=== PATIENT | female | born 1945 | race Caucasian/White ===

== ENCOUNTER 2018-09-21 22:44 | Inpatient (IN) | payer MEDICARE, BC ==
[~2018-09-21] VITALS: Ht 160 cm; Wt 72.4 kg
--- NOTE | ~2018-09-21 | HEMODYNAMI ---
PATIENT:CK HENDRICKS MEDICAL RECORD: [id number] : 45 LOCATION:[facility] D.2114 ADMISSION DATE: 09/21/18 Generatedon:09/25/201810:01 Patient name: CK HENDRICKS Patient #: [id number] SSN: : 1945 Date of study: 09/25/2018 Page: Of Hemodynamic Procedure Report Patient Data Patient Demographics Procedure consent was obtained First Name: CK Gender: Female Last Name: ELADIO : 1945 Patient #: [id number] Age: 73 year(s) Race: Unknown Additional ID: [id number] Contact details Address: [address] [place] [address] State: [place] City: [place] Zip code: [address] Admission Admission Data Admission Date: 09/21/2018 Admission Time: 23:38 Room #: D.2114 Weight (lbs.): 154.32 Weight (kg.): 70 Lab Results Lab Result Date: 09/25/2018 Lab Result Time: 0:00 Biochemistry Name Units Result Min Max BUN mg/dl 5 -*(----)-- 7 18 Creatinine mg/dl 0.7 --(*---)-- 0.6 1.3 CBC Name Units Result Min Max Hemoglobin g/dl 9.6 *-(----)-- 13.5 17.5 Procedure Procedure Types Cath Procedure Diagnostic Procedure [facility] w/Coronaries PCI Procedure Coronary Stent Coronary Stent Initial Procedure Description Procedure Date Procedure Date: 09/25/2018 Procedure Start Time: 9:48 Procedure End Time: 9:58 Procedure Staff Name Function Elliot Varma MD Performing Physician Juanjose Peacock RT Monitor Debbie Iglesias RN Nurse Eun Perez RT Scrub Procedure Data Cath Procedure Fluoroscopy Diagnostic fluoroscopy Total fluoroscopy Time: 2.4 time: 2.4 min min Diagnostic fluoroscopy Total fluoroscopy dose: 161 dose: 161 mGy mGy Contrast Material Contrast Material Type Amount (ml) Isovue 300 60 Entry Location Entry Primary Successful Side Size Upsize Upsize Entry Closure Pacheco ccessful Closure Location (Fr) 1 (Fr) 2 (Fr) Remarks Device Remarks Radial Right 6 Fr Mechanical artery Short Compression Estimated blood loss: 10 ml Diagnostic catheters Device Type Used For End Catheter Placement DIAGNOSTIC [place] 110cm 5 Procedure Fr catheter ([id number]) Procedure Complications No complications Procedure Medications Medication Administration Route Dosage Oxygen etCO2 Nasal cannula 2 l/min Lidocaine 2% added to field 20 Heparin Flush Bag added to field 2 bags (1000units/500ml NS) 0.9% NaCl I.V. 100 ml/hr Versed I.V. 1 mg Fentanyl I.V. 50 mcg Radial Cocktail I.A. 1 syringe (Verapomil 2mg/Nitro 400mcg/Heparin 1500units) Heparin Bolus I.V. 4000 units Integrilin (Bolus I.V. 6.2 ml 2mg/ml) Plavix P.O. 600 mg Hemodynamics Rest HGB: 9.6 (g/dl) Heart Rate: 69 (bpm) Pressure Samples Time Site Value (mmHg) Purpose Heart Use Rate(bpm) 9:50 AO 154/86(112) Snapshot 74 9:50 AO 161/88(118) Snapshot 75 Snapshots Pre Cath Intra NCS Post Cath Vital Signs Time Heart Resp SPO2 etCO2 NIBP (mmHg) Rhythm Pain Sedation Rate (ipm) (%) (mmHg) Status Level (bpm) 9:32:39 70 10 94 0 189/114(157) NSR 0 (11) 10(A) , No pain 9:37:08 68 24 94 0 177/101(160) NSR 0 (11) 10(A) , No pain 9:41:30 67 23 96 0 186/115(160) NSR 0 (11) 10(A) , No pain 9:45:56 69 17 92 0 180/106(155) NSR 0 (11) 10(A) , No pain 9:50:02 78 17 94 0 120/96(112) NSR 0 (11) 10(A) , No pain 9:54:59 79 23 95 0 166/94(137) NSR 0 (11) 10(A) , No pain Medications Time Medication Route Dose Verified Delivered Reason Not es Effectiveness by by 9:44:38 Oxygen etCO2 2 l/min Elliot Lewis used for Nasal Tauth MD Iglesias senior examiner cannula 9:44:43 Lidocaine 2% added 20ml Elliot Zarate for local to vial Avani Varma MD anesthetic field 9:44:48 Heparin Flush added 2 bags Elliot Zarate used for Bag to Avani Varma MD procedure (1000units/500ml field NS) 9:44:56 0.9% NaCl I.V. 100ml/hr Elliot Lewis Per physician Avani Iglesias RN 9:46:12 Versed I.V. 1 mg Elliot Lewis for sedation Avani Iglesias RN 9:46:19 Fentanyl I.V. 50 mcg Elliot Lewis for sedation Avani Iglesias RN 9:49:39 Radial Cocktail I.A. 1 Elliot Zarate for (Verapomil syringe Avani Varma MD vasodilation 2mg/Nitro 400mcg/Heparin 1500units) 9:50:21 Heparin Bolus I.V. 4000 Elliot Lewis for delfino ified units Avani Iglesias RN anticoagulation with dr varma 9:53:54 Integrilin I.V. 6.2 ml Elliot berry Was marlen (Bolus 2mg/ml) Avani Iglesias RN antiplatelet 3.8 ml therapy of vial 9:58:00 Plavix P.O. 600 mg Elliot Lewis for Avani Iglesias RN antiplatelet therapy Procedure Log Time Note 8:52:08 Time tracking: Regular hours (M-F 7:00 - 5:00) 8:52:12 Plan of Care:Hemodynamics will remain stable., Cardiac rhythm will remain stable., Comfort level will be maintained., Respiratory function will remain adequate., Patient/ family verbilizes understanding of procedure., Procedure tolerated without complication., Recovers from procedure without complications.. 9:05:03 Debbie Iglesias RN sent for patient. Start room use. 9:20:57 Patient received from PCU to CCL 3 Alert and oriented. Tansferred to table in Supine position. 9:20:58 Warm blankets applied, and moriah hugger turned on for patient comfort. 9:20:58 Correct patient and procedure confirmed by team. 9:20:59 Signed procedure consent form obtained from patient. 9:21:00 ECG and BP/O2 sat monitors applied to patient. 9:21:01 Full Disclosure recording started 9:31:32 Vital chart was started 9:37:38 Baseline sample Acquired. 9:37:41 Rhythm: sinus rhythm 9:37:59 H&P Date Dictated: 09/22/2018 Within 30 days and on chart., H&P Addendum completed by physician on day of procedure. (MUST COMPLETE FOR ALL OUTPATIENTS). 9:38:00 Pre-procedure instructions explained to patient. 9:38:01 Pre-op teaching completed and patient verbalized understanding. 9:38:04 Family in patients room. 9:38:06 Patient NPO since Midnight. 9:38:07 Is the patient allergic to Iodine/contrast media? No. 9:38:09 Is patient on blood thinner?No 9:38:11 Patient diabetic? No. 9:38:13 Previous problem with sedation/anesthesia? No ? 9:38:13 Snore? Yes 9:38:14 Sleep apnea? No 9:38:16 Deviated septum? No 9:38:16 Opens mouth fully? Yes 9:38:17 Sticks out tongue? Yes 9:38:19 Airway obstruction? No ? 9:38:22 Dentures? Yes IN 9:38:26 Pre procedure: right dorsailis pedis pulse 1+ Palpable, but thready & weak; easily obliterated 9:38:28 Modified Rasheed's test Ulnar < 7 seconds 9:38:31 Patient pain scale 0/10 ?. 9:38:39 IV left forearm D/C'd due to infiltration. 9:38:41 Lab results completed and on chart. 9:38:46 Right Radial & Right Groin area was prepped with chlora-prep and draped in sterile fashion 9:38:48 Alarms reviewed by R. N. 9:38:48 Sharps counted by scrub and verified by R.N. 9:38:54 Use device set Radial Dx or PCI 9:38:56 Tegaderm 4 x 4 (1626W) opened to sterile field. 9:38:56 ACIST Manifold (13040) opened to sterile field. 9:38:57 ACIST Hand Control (76430) opened to sterile field. 9:38:58 ACIST Syringe (71517) opened to sterile field. 9:38:58 Medline Cath Pack ([id number]) opened to sterile field. 9:38:59 Bag Decanter (2002S) opened to sterile field. 9:38:59 DIAGNOSTIC WIRE .035 260cm J wire (705154) opened to sterile field. 9:39:00 MBrace Wrist Support ([id number]) opened to sterile field. 9:39:02 SHEATH 6FR Slender (90-5574) opened to sterile field. 9:42:43 IV started by Debbie Iglesias RN inleft hand with a 22 gauge IV catheter with 0.9% NaCl at KVO. 9:42:53 IV CATHETER 22g opened to sterile field. 9:44:38 Oxygen 2 l/min etCO2 Nasal cannula was administered by Debbie Iglesias RN; used for procedure; 9:44:43 Lidocaine 2% 20ml vial added to field was administered by Elliot Varma MD; for local anesthetic; 9:44:48 Heparin Flush Bag (1000units/500ml NS) 2 bags added to field was administered by Elliot Varma MD; used for procedure; 9:44:56 0.9% NaCl 100ml/hr I.V. was administered by Debbie Iglesias RN; Per physician; 9:45:32 --------ALL STOP TIME OUT------ 9:45:33 Final Timeout: patient, procedure, and site verified with staff and physician. All members of the team are in agreement. 9:45:35 Right Radial & Right Groin site verified by team. 9:45:42 Maximum allowable Isovue 300 dose 300ml. Physician notified. (300ml for normal creatinines. For patients with creatinine of 1.7 or higher multiply weight(kg) x 5 divided by creatinine.) 9:45:47 Fire Safety Assessment: A--An alcohol-based skin anteseptic being used preoperatively., C--Open oxygen or nitrous oxide is being used., D--An ESU, laser, or fiber-optic light is being used. 9:45:50 Physical assessment completed. ASA score P 2 - A patient with mild systemic disease as per Elliot Varma MD. 9:45:53 Sedation plan: IV Moderate Sedation Medication:Versed, Fentanyl 9:46:12 Versed 1 mg I.V. was administered by Debbie Iglesias RN; for sedation; 9:46:19 Fentanyl 50 mcg I.V. was administered by Debbie Iglesias RN; for sedation; 9:47:15 Lab Result : Creatinine 0.7 mg/dl 9:47:15 Lab Result : BUN 5 mg/dl 9:47:15 Lab Result : Hemoglobin 9.6 g/dl 9:47:19 Patient Weight : 154.32 lbs 9:48:07 Procedure started. 9:48:15 Local anesthetic to right radial artery with Lidocaine 2% by Elliot Varma MD.INITIAL ACCESS ONLY 9:48:45 A 6 Fr Short sheath was inserted into the Right Radial artery 9:49:16 A DIAGNOSTIC [place] 110cm 5 Fr catheter ([id number]) was advanced over the wire and used for Procedure. 9:49:39 Radial Cocktail (Verapomil 2mg/Nitro 400mcg/Heparin 1500units) 1 syringe I.A. was administered by Elliot Vamra MD; for vasodilation; 9:49:48 LV angiography performed. 9:49:49 LV gram done using PARIKH 9:49:53 EF : 50 % 9:49:57 Injector settings: Ml/sec: 5, Volume: 15, 9:50:21 Heparin Bolus 4000 units I.V. was administered by Debbie Iglesias RN; for anticoagulation; verified with dr varma 9:50:44 LCA angiography performed. 9:51:06 RCA angiography performed. 9:51:14 Catheter exchanged over wire. 9:51:18 Use device set [facility] PCI 9:51:25 CHOICE PT Extra Support 182cm wire ([id number]) opened to sterile field. 9:51:27 INFLATOR Merit BasixCompak (ZJ1664) opened to sterile field. 9:51:29 GUIDE 6FR XBLAD 3.5 catheter (85047240) opened to sterile field. 9:52:23 6 Fr XBLAD 3.5 guide catheter was inserted over the wire 9:52:31 CPTXS wire advanced. 9:53:19 Wire advanced across lesion. 9:53:54 Integrilin (Bolus 2mg/ml) 6.2 ml I.V. was administered by Debbie Iglesias RN; for antiplatelet therapy; Wasted 3.8 ml of vial 9:54:54 Place stent Inflation Number: 1 A INTEGRITY RX 3.5 x 12 stent ([id number]) was prepped and advanced across the Mid LAD. The stent was deployed at 15 NGUYEN for 0:10 (min:sec). 9:55:05 Stent catheter was removed intact over wire. 9:55:06 Wire removed. 9:55:07 Guide catheter removed. 9:55:10 TR BAND Standard ([id number]) opened to sterile field. 9:56:48 Sheath removed intact; hemostasis achieved with Mechanical Compression to the Right Radial artery. 9:56:50 Procedure ended.(Physican Out) 9:57:06 Fluoroscopy time 02.40 minutes. 9:57:13 Fluoroscopy dose: 161 mGy 9:57:13 Flurop Dose total: 161 9:57:29 Contrast amount:Isovue 300 60ml. 9:57:31 Sharps counted by scrub and verified by R.N. 9:57:33 TR band inflated with 12cc of air. 9:57:34 Insertion/operative site no bleeding no hematoma. 9:57:35 Post Procedure Pulses reassessed and unchanged 9:57:37 Post-procedure physical assessment completed. ASA score P 2 - A patient with mild systemic disease as per Elliot Varma MD. 9:57:39 Post procedure rhythm: unchanged. 9:57:42 Estimated blood loss: 10 ml 9:57:43 Post procedure instruction explained to patient.Patient verbalizes understanding. 9:57:44 Patient needs reinforcement of post procedure teaching. 9:57:50 Procedure type changed to Cath procedure, Diagnostic procedure, LHC, LHC w/Coronaries, PCI procedure, Coronary Stent, Coronary Stent Initial 9:58:00 Plavix 600 mg P.O. was administered by Debbie Iglesias RN; for antiplatelet therapy; 9:58:10 Procedure and supply charges have been captured, reviewed, submitted and are correct. 9:58:13 Procedure Complication : No complications 9:58:17 Vital chart was stopped 9:58:18 See physician's report for complete and final results. 9:58:44 Report given to PCU. 9:58:47 Patient transfered to PCU with Bed. 9:58:49 Procedure ended. 9:58:49 Full Disclosure recording stopped 9:58:54 End room use (Document Last) Intervention Summary Intervention Notes Time ActionType Lesion and Equipment Action# Pressure Duration Attributes Used 9:54:54 Place stent Mid LAD INTEGRITY RX 1 15 00:10 3.5 x 12 stent ([id number]) Device Usage Item Name Manufacture Quantity Catalog Number Hospital Part Current Mini mal Lot# / Charge Number Stock Stock Serial# Code Tegaderm 4 x 3M 1 1626W [id number] 244153 427516 5 4 (1626W) ACIST Acist 1 15328 828450 715705 413799 5 Manifold Medical (41972) Systems Inc ACIST Hand Acist 1 38886 328568 142791 428914 5 Control Medical (27882) Systems Inc ACIST Acist 1 84836 089344 610286 659454 20 Syringe Medical (19111) Systems Inc Medline Cath Medline 1 [id number] 067415 96982 675738 5 Pack ([id number]) Bag Decanter Microtek 1 2001S 226854 13682 133404 5 (2001S) Medical Inc. DIAGNOSTIC St Portillo 1 392165 947881 662903 200559 30 WIRE .035 260cm J wire (797917) MBrace Wrist Advanced 1 140-0250-00 445799 52256 356067 5 Support Vascular (111856506) Dynamics SHEATH 6FR Terumo 1 [id number] 394530 322658 236369 5 Slender (80-1060) IV CATHETER B. Sanders 1 9641544-45 444662 334323 909140 5 22g DIAGNOSTIC Terumo 1 40-5900 444267 686885 497243 5 [place] 110cm 5 Fr catheter (002450) CHOICE PT Spring 1 [id number] 896846 661882 557644 5 Extra Scientific Support 182cm wire (4276917F5) INFLATOR Merit 1 JT3439 949039 358544 146048 15 [facility] Medical BasixCompak (QF0898) GUIDE 6FR Cardinal 1 39967957 842883 445542 959345 10 XBLAD 3.5 Health catheter (21987313) INTEGRITY RX Medtronic 1 [id number] 545970 628460 923585 5 [id number] 3.5 x 12 stent ([id number]) TR BAND Terumo 1 HNH49-YGE 619286 676080 725473 40 Standard ([id number]) Signature Audit [place] Stage Time Signature Unsigned Intra-Procedure 09/25/2018 Juanjose Peacock 10:01:22 AM RT(R) Signatures Monitor : Juanjose Peacock RT Signature : Date : Time : [address] [place] [address]
[2018-09-21] MEDS ORDERED: LISINOPRIL20 MG PO (22:50)
[2018-09-21] MEDS ORDERED: HYDROCODON-ACE1 EAC7 PO (22:51)
[2018-09-21] MEDS ORDERED: PROTONIX40 MG PO (22:51)
[2018-09-21] MEDS ORDERED: TRAZODONE HCL150 MG PO (22:52)
[2018-09-21] MEDS ORDERED: CATAPRES0.1 MG PO (22:52)
[2018-09-21] MEDS ORDERED: BACLOFEN20 M1 PO (22:53)
[2018-09-21] MEDS ORDERED: SYNTHROID50 MCG PO (22:53)
[2018-09-21] MEDS ORDERED: FERROUS SULFAT325 MG PO (22:53)
[2018-09-21 23:27] LABS: BASOPHILS 0.4 % (0-2); EOSINOPHILS 0.2 % (0-7); HEMATOCRIT 20.9 % (36.0-48.0); IMMATURE GRANULOCYTES 0.2 % (0-5); LYMPHOCYTES 16.6 % (15-50); MCHC 25.4 g/dL (31.0-37.0); MCV 58.4 fL (80.0-100.0); MONOCYTES 9.2 % (2-11); NEUTROPHILS 73.4 % (40-80); PLATELET COUNT 370 10x3/uL (130-400); RBC 3.58 10x6/uL (4.00-5.40); RDW 20.4 % (11.5-14.5); WBC 4.9 10x3/uL (4.8-10.8)
[2018-09-21 23:28] LABS: HEMOGLOBIN 5.3 g/dL (12-16); MCH 14.8 pg (26.0-34.0)
[2018-09-21 23:30] VITALS: BP 151/79
[2018-09-21 23:39] LABS: ALBUMIN 2.8 g/dL (3.4-5.0); ALKALINE PHOSPHATASE 54 U/L (46-116); ALT (SGPT) 11 U/L (10-68); APTT 34.8 SECONDS (22.8-39.4); BILIRUBIN - TOTAL 0.46 mg/dL (0.2-1.3); CALC OSMOLALITY 266 mosm/kg (275-300); CALCIUM 8.2 mg/dL (8.5-10.1); CHLORIDE - SERUM 99 mmol/L (98-107); CREATININE - SERUM 0.6 mg/dL (0.6-1.3); GLUCOSE 82 mg/dL (74-106); INR 1.17 (0.85-1.17); POTASSIUM - SERUM 3.3 mmol/L (3.5-5.1); PROTEIN - SERUM 7.5 g/dL (6.4-8.2); PROTIME 14.4 SECONDS (11.6-15.0); SODIUM 135 mmol/L (136-145); UREA NITROGEN 8 mg/dL (7-18); eGFR NON AFRICAN AMERICAN > 90 mL/min (90-120)
[2018-09-21 23:56] LABS: CKMB 0.1 U/L (0.0-3.6); CREATINE KINASE 69 UL (21-215); MAGNESIUM - SERUM 1.9 mg/dL (1.8-2.4)
[2018-09-22] VITALS (26 sets, daily range): BP systolic 122–185; BP diastolic 56–92; BMI 27.5
[2018-09-22] LABS: TROPONIN-I 14.024 ng/mL (0.000-0.060)
[2018-09-22 06:55] LABS: ALBUMIN 2.8 g/dL (3.4-5.0); ALKALINE PHOSPHATASE 58 U/L (46-116); ALT (SGPT) 9 U/L (10-68); CALC OSMOLALITY 268 mosm/kg (275-300); CALCIUM 8.1 mg/dL (8.5-10.1); CARBON DIOXIDE 23.8 mmol/L (21.0-32.0); CHLORIDE - SERUM 100 mmol/L (98-107); CREATINE KINASE 143 UL (21-215); CREATININE - SERUM 0.6 mg/dL (0.6-1.3); GLUCOSE 82 mg/dL (74-106); POTASSIUM - SERUM 3.1 mmol/L (3.5-5.1); PROTEIN - SERUM 7.4 g/dL (6.4-8.2); SODIUM 136 mmol/L (136-145); UREA NITROGEN 8 mg/dL (7-18); eGFR NON AFRICAN AMERICAN > 90 mL/min (90-120)
[2018-09-22 06:56] LABS: TROPONIN-I 13.203 ng/mL (0.000-0.060)
[2018-09-22 07:14] LABS: BASOPHILS 0.1 % (0-2); EOSINOPHILS 0.1 % (0-7); IMMATURE GRANULOCYTES 0.5 % (0-5); LYMPHOCYTES 2.8 % (15-50); MCHC 28.5 g/dL (31.0-37.0); MEAN PLATELET VOLUME 9.3 fL (7.4-10.4); NEUTROPHILS 93.5 % (40-80); RBC 4.25 10x6/uL (4.00-5.40); RDW 26.5 % (11.5-14.5); WBC 8.1 10x3/uL (4.8-10.8)
[2018-09-22 07:15] LABS: HEMATOCRIT 27.4 % (36.0-48.0); HEMOGLOBIN 7.8 g/dL (12-16); MCH 18.4 pg (26.0-34.0); MCV 64.5 fL (80.0-100.0); PLATELET COUNT 216 10x3/uL (130-400)
[2018-09-22 08:12] LABS: % SATURATION 71 % (15-55); IRON 266 ug/dl (35-150); TOTAL IRON BIND CAPACITY 373 ug/dl (260-445); UNSAT IRON BIND CAPACITY 107 ug/dl (150-375)
[2018-09-22 08:26] LABS: FERRITIN 41 ng/mL (3-244); LDH 331 U/L (81-234)
[2018-09-22 12:49] LABS: CKMB 0.9 U/L (0.0-3.6); CREATINE KINASE 162 UL (21-215)
[2018-09-23] VITALS (22 sets, daily range): BP systolic 94–181; BP diastolic 55–99; Ht 160 cm; Wt 72.4 kg
[2018-09-23 04:28] LABS: BASOPHILS 0.4 % (0-2); EOSINOPHILS 1.1 % (0-7); HEMATOCRIT 30.9 % (36.0-48.0); HEMOGLOBIN 9.2 g/dL (12-16); IMMATURE GRANULOCYTES 0.2 % (0-5); MCH 20.1 pg (26.0-34.0); MCHC 29.8 g/dL (31.0-37.0); MONOCYTES 10.4 % (2-11); NEUTROPHILS 69.9 % (40-80); PLATELET COUNT 230 10x3/uL (130-400); RBC 4.57 10x6/uL (4.00-5.40); RDW 26.7 % (11.5-14.5)
[2018-09-23 04:36] LABS: MCV 67.6 fL (80.0-100.0); WBC 5.7 10x3/uL (4.8-10.8)
[2018-09-23 04:40] LABS: CALC OSMOLALITY 264 mosm/kg (275-300); CALCIUM 8.3 mg/dL (8.5-10.1); CARBON DIOXIDE 28.2 mmol/L (21.0-32.0); CHLORIDE - SERUM 99 mmol/L (98-107); CREATININE - SERUM 0.7 mg/dL (0.6-1.3); GLUCOSE 87 mg/dL (74-106); POTASSIUM - SERUM 3.2 mmol/L (3.5-5.1); SODIUM 134 mmol/L (136-145); UREA NITROGEN 6 mg/dL (7-18); eGFR NON AFRICAN AMERICAN 87 mL/min (90-120)
[2018-09-24] VITALS (13 sets, daily range): BP systolic 106–174; BP diastolic 46–88
[2018-09-24 04:27] LABS: BASOPHILS 0.2 % (0-2); EOSINOPHILS 1.1 % (0-7); HEMATOCRIT 32.3 % (36.0-48.0); HEMOGLOBIN 9.5 g/dL (12-16); IMMATURE GRANULOCYTES 0.2 % (0-5); LYMPHOCYTES 15.8 % (15-50); MCHC 29.4 g/dL (31.0-37.0); MONOCYTES 11.3 % (2-11); NEUTROPHILS 71.4 % (40-80); PLATELET COUNT 238 10x3/uL (130-400); RBC 4.75 10x6/uL (4.00-5.40); RDW 27.6 % (11.5-14.5); WBC 4.5 10x3/uL (4.8-10.8)
[2018-09-24 04:49] LABS: CALC OSMOLALITY 262 mosm/kg (275-300); CALCIUM 8.3 mg/dL (8.5-10.1); CARBON DIOXIDE 27.8 mmol/L (21.0-32.0); CHLORIDE - SERUM 98 mmol/L (98-107); CREATININE - SERUM 0.7 mg/dL (0.6-1.3); GLUCOSE 99 mg/dL (74-106); SODIUM 133 mmol/L (136-145); UREA NITROGEN 5 mg/dL (7-18); eGFR NON AFRICAN AMERICAN 87 mL/min (90-120)
[2018-09-24 04:59] LABS: POTASSIUM - SERUM 3.9 mmol/L (3.5-5.1)
[2018-09-24 09:18] LABS: FOLATE (FOLIC ACID) - SERUM 11.8 ng/mL (>3.0)
--- NOTE | 2018-09-24 18:41 | MORECARE ---
CASE MANAGEMENT DISCHARGE SUMMARY PATIENT: CK HENDRICKS UNIT: [id number] ADM DATE: 09/21/18 AGE: 73 : 45 SEX: F ROOM/BED: D.2114 AUTHOR: MARIANA JUÁREZ PHYSICIAN: REFERRING PHYSICIAN: JARED STOVER MD DATE OF SERVICE: 09/24/18 Discharge Plan Patient Name: CK HENDRICKS Facility: [facility]:[place] : 1945 Planned Disposition: Home with Home Health Anticipated Discharge Date: Discharge Date: Expected LOS: Initial Reviewer: [email or web address] Initial Review Date: 09/24/2018 Generated: 09/24/18 7:41 pm Patient Name: CK HENDRICKS Page 59011 at 1841 All edits/amendments must be made on the electronic document DICTATION DATE: 09/24/181840 PERCUSSION INSTRUCTOR: JENELLE 09/24/181840 RPT#: [id number] DC DATE: STATUS: ADM IN [facility] [address] [place] [address] END OF REPORT
--- NOTE | 2018-09-24 18:48 | MORECARE ---
CASE MANAGEMENT DISCHARGE SUMMARY PATIENT: CK HENDRICKS UNIT: [id number] ADM DATE: 09/21/18 AGE: 73 : 45 SEX: F ROOM/BED: D.2114 AUTHOR: MARIANA JUÁREZ PHYSICIAN: REFERRING PHYSICIAN: JARED STOVER MD DATE OF SERVICE: 09/24/18 Discharge Plan Patient Name: CK HENDRICKS Facility: [facility]:[place] : 1945 Planned Disposition: Home with Home Health Anticipated Discharge Date: Discharge Date: Expected LOS: Initial Reviewer: [email or web address] Initial Review Date: 09/24/2018 Generated: 09/24/18 7:48 pm DCPIA - Discharge Planning Initial Assessment Updated by [email or web address]: Dennise Hamm on 09/24/18 6:42 pm * Is the patient Alert and Oriented? Yes * How many steps to enter\exit or inside your home? * PCP ANGLEITA JURADO * [facility] * Preadmission Environment Home Alone * ADLs Independent * Equipment Walker * List name and contact numbers for known caregivers / representatives who currently or will assist patient after discharge: VINCENT Santoyo DAUGHTER - [phone] LON Santoyo SONN-[facility]- [phone] * Verbal permission to speak to the caregivers and representatives has been obtained from the patient. N/A * Community resources currently utilized None * Additional services required to return to the preadmission environment? No * Can the patient safely return to the preadmission environment? Yes * Has this patient been hospitalized within the prior 30 days at any hospital? No Last DP export: 09/24/18 5:41 pm Patient Name: CK HENDRICKS Page 32967 at 1848 All edits/amendments must be made on the electronic document DICTATION DATE: 09/24/181847 PROFESSOR OF APOLOGETICS: JENELLE 09/24/181847 RPT#: [id number] DC DATE: STATUS: ADM IN [facility] [address] [place] [address] END OF REPORT
--- NOTE | 2018-09-24 18:55 | MORECARE ---
CASE MANAGEMENT DISCHARGE SUMMARY PATIENT: CK HENDRICKS UNIT: [id number] ADM DATE: 09/21/18 AGE: 73 : 45 SEX: F ROOM/BED: D.6674 AUTHOR: FRANCK,DOC PHYSICIAN: REFERRING PHYSICIAN: JARED STOVER MD DATE OF SERVICE: 09/24/18 Discharge Plan Patient Name: CK HENDRICKS Facility: [facility]:[place] : 1945 Planned Disposition: Home with Home Health Anticipated Discharge Date: Discharge Date: Expected LOS: Initial Reviewer: [email or web address] Initial Review Date: 09/24/2018 Generated: 09/24/18 7:55 pm Comments DCP- Discharge Planning Updated by [email or web address]: Dennise Hamm on 09/24/18 5:[address] Patient Name: CK HENDRICKS Admission Status: ER Accout number: [id number] Admission Date: 09-21-2018 : 1945 Admission Diagnosis:GASTROINTESTINAL HEMORRHAGE, UNSPECIFIED Attending: JARED STOVER Current LOS: 3 Anticipated DC Date: Planned Disposition: Home with Home Health Primary Insurance: MEDICARE A & B Discharge Planning Comments: CM met with patient at bedside. Patient states that she lives alone. Patient states that she plans to return to her home upon discharge. Patient states that she has a walker at home. Patient states that she would like home health when discharged. CM will continue to follow and assist as needed with discharge planning / needs. Director Of Quality: Dennise Hamm DCPIA - Discharge Planning Initial Assessment Updated by [email or web address]: Dennise Hamm on 09/24/18 6:42 pm * Is the patient Alert and Oriented? Yes * How many steps to enter\exit or inside your home? * PCP ANGELITA JURADO * [facility] * Preadmission Environment Home Alone * ADLs Independent * Equipment Walker * List name and contact numbers for known caregivers / representatives who currently or will assist patient after discharge: VINCENT BROOKLYN - DAUGHTER - [phone] LON Santoyo SON-N-LAW- [phone] * Verbal permission to speak to the caregivers and representatives has been obtained from the patient. N/A * Community resources currently utilized None * Additional services required to return to the preadmission environment? No * Can the patient safely return to the preadmission environment? Yes * Has this patient been hospitalized within the prior 30 days at any hospital? No Last DP export: 09/24/18 5:48 pm Patient Name: CK HENDRICKS Page 15750 at 1855 All edits/amendments must be made on the electronic document DICTATION DATE: 09/24/181854 WAITER/WAITRESS DINING CAR: JENELLE 09/24/181854 RPT#: [id number] DC DATE: STATUS: ADM IN [facility] [address] [place] [address] END OF REPORT
[2018-09-25] VITALS: BP 149/78
[2018-09-25 04:00] VITALS: BP 154/86
[2018-09-25 06:54] LABS: BASOPHILS 0.2 % (0-2); EOSINOPHILS 0.5 % (0-7); HEMATOCRIT 32.3 % (36.0-48.0); HEMOGLOBIN 9.6 g/dL (12-16); IMMATURE GRANULOCYTES 0.5 % (0-5); LYMPHOCYTES 18.8 % (15-50); MCH 20.1 pg (26.0-34.0); MCHC 29.7 g/dL (31.0-37.0); MCV 67.6 fL (80.0-100.0); MONOCYTES 7.5 % (2-11); NEUTROPHILS 72.5 % (40-80); PLATELET COUNT 256 10x3/uL (130-400); RBC 4.78 10x6/uL (4.00-5.40); RDW 28.4 % (11.5-14.5)
[2018-09-25 06:57] LABS: CALC OSMOLALITY 271 mosm/kg (275-300); CALCIUM 8.5 mg/dL (8.5-10.1); CARBON DIOXIDE 28.6 mmol/L (21.0-32.0); CHLORIDE - SERUM 101 mmol/L (98-107); CREATININE - SERUM 0.7 mg/dL (0.6-1.3); GLUCOSE 118 mg/dL (74-106); SODIUM 137 mmol/L (136-145); UREA NITROGEN 5 mg/dL (7-18); eGFR NON AFRICAN AMERICAN 87 mL/min (90-120)
[2018-09-25 07:04] LABS: POTASSIUM - SERUM 3.2 mmol/L (3.5-5.1)
[2018-09-25 09:23] VITALS: BP 120/82
[2018-09-25 13:01] VITALS: BP 170/93
[2018-09-25 18:45] VITALS: BP 160/80
[2018-09-25 20:00] VITALS: BP 120/77
[2018-09-26] VITALS: BP 151/83
[2018-09-26 04:00] VITALS: BP 172/80
[2018-09-26 06:03] LABS: BASOPHILS 0.3 % (0-2); EOSINOPHILS 0.2 % (0-7); HEMATOCRIT 33.6 % (36.0-48.0); HEMOGLOBIN 10.3 g/dL (12-16); LYMPHOCYTES 19.6 % (15-50); MCH 20.6 pg (26.0-34.0); MCHC 30.7 g/dL (31.0-37.0); MCV 67.1 fL (80.0-100.0); MONOCYTES 4.8 % (2-11); NEUTROPHILS 74.1 % (40-80); PLATELET COUNT 290 10x3/uL (130-400); RBC 5.01 10x6/uL (4.00-5.40); RDW 29.4 % (11.5-14.5); WBC 6.1 10x3/uL (4.8-10.8)
[2018-09-26 06:20] LABS: CALC OSMOLALITY 269 mosm/kg (275-300); CALCIUM 8.8 mg/dL (8.5-10.1); CARBON DIOXIDE 24.3 mmol/L (21.0-32.0); CHLORIDE - SERUM 103 mmol/L (98-107); CREATININE - SERUM 0.6 mg/dL (0.6-1.3); GLUCOSE 122 mg/dL (74-106); POTASSIUM - SERUM 3.5 mmol/L (3.5-5.1); SODIUM 136 mmol/L (136-145); UREA NITROGEN 4 mg/dL (7-18); eGFR NON AFRICAN AMERICAN > 90 mL/min (90-120)
[2018-09-26 09:37] VITALS: BP 168/85
--- NOTE | 2018-09-26 10:00 | MORECARE ---
CASE MANAGEMENT DISCHARGE SUMMARY PATIENT: CK HENDRICKS UNIT: [id number] ADM DATE: 09/21/18 AGE: 73 : 45 SEX: F ROOM/BED: D.7454 AUTHOR: FRANCK,DOC PHYSICIAN: REFERRING PHYSICIAN: JARED STOVER MD DATE OF SERVICE: 09/26/18 Discharge Plan Patient Name: KC HENDRICKS Facility: [facility]:[place] : 1945 Planned Disposition: Home with Home Health Anticipated Discharge Date: Discharge Date: Expected LOS: Initial Reviewer: [email or web address] Initial Review Date: 09/24/2018 Generated: 09/26/18 11:00 am Comments DCP- Discharge Planning Updated by [email or web address]: Mandy Piña on 09/26/18 8:[address] MET IN ROOM WITH PATIENT TO ASK HOW LONG IT HAS BEEN SINCE SHE SAW HER PCP CASSANDRA GOLDSTEIN. SHE STATE IT HAS BEEN A WHILE. I EXPLAINED THAT SHE MAY HAVE TO MAKE AN APPOINTMENT TO SEE HIM BEFORE HE WILL SIGN HOME HEALT H ORDERS. I HAVE EXPLAINED THAT I LEFT A MESSAGE FOR [facility] AT HIS OFFICE ([phone] TO SEE IF HE WOULD BE WILLING TO SIGN ORDERS OR IF SHE NEEDED AN APPOINTMENT FIRST, AND I AM WAITING ON A RETURN CALL. I ALSO EXPLAINED THAT I SPOKE WITH MATT AT [facility] IN [place] ([phone]) AND I WILL GO AHEAD AND FAX THE ORDER OVER. I CONFIRMED THAT HER ADDRESS WAS CORRECT. HER CELL PHONE IS [phone] AND HER SOCIAL SECURITY NUMBER IS [phone] AND NEITHER OF THESE NUMBERS WERE ON HER FACESHEET. I EXPLAINED THAT I HAVE TO MAKE SURE THE HOME HEALTH HAS THIS INFORMATION TO BILL HER INSURANCE AND TO HAVE A WAY TO CONTACT HER ABOUT COMING TO HER HOUSE AND SUCH. SHE STATED UNDERSTANDING. DCP- Discharge Planning Updated by [email or web address]: Dennise Hamm on 09/24/18 5:[address] Patient Name: CK HENDRICKS Admission Status: ER Accout number: [id number] Admission Date: 09-21-2018 : 1945 Admission Diagnosis:GASTROINTESTINAL HEMORRHAGE, UNSPECIFIED Attending: JARED STOVER Current LOS: 3 Anticipated DC Date: Planned Disposition: Home with Home Health Primary Insurance: MEDICARE A & B Discharge Planning Comments: CM met with patient at bedside. Patient states that she lives alone. Patient states that she plans to return to her home upon discharge. Patient states that she has a walker at home. Patient states that she would like home health when discharged. CM will continue to follow and assist as needed with discharge planning / needs. Electric Brain Wave Equipment Mechanic: Dennise Hamm DCPIA - Discharge Planning Initial Assessment Updated by [email or web address]: Dennise Hamm on 09/24/18 6:42 pm * Is the patient Alert and Oriented? Yes * How many steps to enter\exit or inside your home? * PCP ANGELITA JURADO * [facility] * Preadmission Environment Home Alone * ADLs Independent * Equipment Walker * List name and contact numbers for known caregivers / representatives who currently or will assist patient after discharge: VINCENT BROOKLYN Santoyo DAUGHTER - [phone] LON Santoyo SON-N-LAW- [phone] * Verbal permission to speak to the caregivers and representatives has been obtained from the patient. N/A * Community resources currently utilized None * Additional services required to return to the preadmission environment? No * Can the patient safely return to the preadmission environment? Yes * Has this patient been hospitalized within the prior 30 days at any hospital? No Coverage Notice Reviewer: [email or web address] Yarelis Piña Notice Issued Date-Time: 09/25/2018 11:18 Notice Type: Patient Choice Letter Notice Delivered To: Patient Relationship to Patient: Self Drill Hand Name: Delivery Method: - Noa Days: Prior Verbal Notification: Recipient Understood Notice: Recipient Signature: Francis Rec Note Co-signed by Attending: Coverage Notice Comment: Last DP export: 09/24/18 5:55 pm Patient Name: CK HENDRICKS Page 26199 at 1000 All edits/amendments must be made on the electronic document DICTATION DATE: 09/26/18958 ELEVATOR TECHNICIAN: JENELLE 09/26/1859 RPT#: [id number] DC DATE: STATUS: ADM IN [facility] [address] [place] [id number] END OF REPORT
--- NOTE | 2018-09-26 10:07 | MORECARE ---
CASE MANAGEMENT DISCHARGE SUMMARY PATIENT: CK HNEDRICKS UNIT: [id number] ADM DATE: 09/21/18 AGE: 73 : 45 SEX: F ROOM/BED: D.7514 AUTHOR: FRANCK,DOC PHYSICIAN: REFERRING PHYSICIAN: JARED STOVER MD DATE OF SERVICE: 09/26/18 Discharge Plan Patient Name: CK HENDRICKS Facility: [facility]:[place] : 1945 Planned Disposition: Home with Home Health Anticipated Discharge Date: Discharge Date: Expected LOS: Initial Reviewer: [id number] Initial Review Date: 09/24/2018 Generated: 09/26/18 11:06 am Comments DCP- Discharge Planning Updated by [email or web address]: Mandy Piña on 09/26/18 8:[address] MET IN ROOM WITH PATIENT TO ASK HOW LONG IT HAS BEEN SINCE SHE SAW HER PCP CASSANDRA GOLDSTEIN. SHE STATE IT HAS BEEN A WHILE. I EXPLAINED THAT SHE MAY HAVE TO MAKE AN APPOINTMENT TO SEE HIM BEFORE HE WILL SIGN HOME HEALT H ORDERS. I HAVE EXPLAINED THAT I LEFT A MESSAGE FOR [facility] AT HIS OFFICE ([phone] TO SEE IF HE WOULD BE WILLING TO SIGN ORDERS OR IF SHE NEEDED AN APPOINTMENT FIRST, AND I AM WAITING ON A RETURN CALL. I ALSO EXPLAINED THAT I SPOKE WITH MATT AT [facility] IN [place] ([phone]) AND I WILL GO AHEAD AND FAX THE ORDER OVER. I CONFIRMED THAT HER ADDRESS WAS CORRECT. HER CELL PHONE IS [phone] AND HER SOCIAL SECURITY NUMBER IS [phone] AND NEITHER OF THESE NUMBERS WERE ON HER FACESHEET. I EXPLAINED THAT I HAVE TO MAKE SURE THE HOME HEALTH HAS THIS INFORMATION TO BILL HER INSURANCE AND TO HAVE A WAY TO CONTACT HER ABOUT COMING TO HER HOUSE AND SUCH. SHE STATED UNDERSTANDING. DCP- Discharge Planning Updated by [email or web address]: Dennise Hamm on 09/24/18 5:[address] Patient Name: CK HENDRICKS Admission Status: ER Accout number: [id number] Admission Date: 09-21-2018 : 1945 Admission Diagnosis:GASTROINTESTINAL HEMORRHAGE, UNSPECIFIED Attending: JARED STOVER Current LOS: 3 Anticipated DC Date: Planned Disposition: Home with Home Health Primary Insurance: MEDICARE A & B Discharge Planning Comments: CM met with patient at bedside. Patient states that she lives alone. Patient states that she plans to return to her home upon discharge. Patient states that she has a walker at home. Patient states that she would like home health when discharged. CM will continue to follow and assist as needed with discharge planning / needs. Cigar Tobacco Processing Supervisor: Dennise Hamm DCPIA - Discharge Planning Initial Assessment Updated by [email or web address]: Dennise Hamm on 09/24/18 6:42 pm * Is the patient Alert and Oriented? Yes * How many steps to enter\exit or inside your home? * PCP ANGELITA Santoyo [place] * [facility] * Preadmission Environment Home Alone * ADLs Independent * Equipment Walker * List name and contact numbers for known caregivers / representatives who currently or will assist patient after discharge: VINCENT BROOKLYN Santoyo DAUGHTER - [phone] LON Santoyo SON-N-LAW- [phone] * Verbal permission to speak to the caregivers and representatives has been obtained from the patient. N/A * Community resources currently utilized None * Additional services required to return to the preadmission environment? No * Can the patient safely return to the preadmission environment? Yes * Has this patient been hospitalized within the prior 30 days at any hospital? No External Providers External Provider: [facility] Next Contact Date: Service Request Date: Service Type: Resolution: Reviewer: Comments: Coverage Notice Reviewer: [id number] Yarelis Piña Notice Issued Date-Time: 09/25/2018 11:18 Notice Type: Patient Choice Letter Notice Delivered To: Patient Relationship to Patient: Self Director Of National Sales Name: Delivery Method: - Noa Days: Prior Verbal Notification: Recipient Understood Notice: Recipient Signature: Med Rec Note Co-signed by Attending: Coverage Notice Comment: Last DP export: 09/26/18 9:00 am Patient Name: CK HENDRICKS Page 74096 at 1007 All edits/amendments must be made on the electronic document DICTATION DATE: 09/26/18 1006 INFORMATICS APPLICATION ANALYST: JENELLE 09/26/18 1006 RPT#: [id number] DC DATE: STATUS: ADM IN [address] [place] [address] END OF REPORT
--- NOTE | 2018-09-26 11:07 | MORECARE ---
CASE MANAGEMENT DISCHARGE SUMMARY PATIENT: CK HENDRICKS UNIT: [id number] ADM DATE: 09/21/18 AGE: 73 : 45 SEX: F ROOM/BED: D.1274 AUTHOR: FRANCK,DOC PHYSICIAN: REFERRING PHYSICIAN: JARED STOVER MD DATE OF SERVICE: 09/26/18 Discharge Plan Patient Name: CK HENDRICKS Facility: [facility]:[place] : 1945 Planned Disposition: Home with Home Health Anticipated Discharge Date: Discharge Date: Expected LOS: Initial Reviewer: [email or web address] Initial Review Date: 09/24/2018 Generated: 09/26/18 12:07 pm Comments DCP- Discharge Planning Updated by [email or web address]: Mandy Piña on 09/26/18 10:[address] RECEIVED A VOICEMAIL FROM [facility] WITH DR GOLDSTEIN'S OFFICE. THE PATIENT HAS NOT BEEN SEEN BY HIM SINCE JUNE OF 2017 AND WILL REQUIRE AN APPOINTMENT SOON POSSIBLE SO THE ORDERS COULD BE SIGNED. I WILL ENTER A NURSING MESSAGE TO THIS. DCP- Discharge Planning Updated by [id number]: Mandy Piña on 09/26/18 8:[address] MET IN ROOM WITH PATIENT TO ASK HOW LONG IT HAS BEEN SINCE SHE SAW HER PCP CASSANDRA GOLDSTEIN. SHE STATE IT HAS BEEN A WHILE. I EXPLAINED THAT SHE MAY HAVE TO MAKE AN APPOINTMENT TO SEE HIM BEFORE HE WILL SIGN HOME HEALT H ORDERS. I HAVE EXPLAINED THAT I LEFT A MESSAGE FOR [facility] AT HIS OFFICE ([phone] TO SEE IF HE WOULD BE WILLING TO SIGN ORDERS OR IF SHE NEEDED AN APPOINTMENT FIRST, AND I AM WAITING ON A RETURN CALL. I ALSO EXPLAINED THAT I SPOKE WITH MATT AT [facility] IN [place] ([phone]) AND I WILL GO AHEAD AND FAX THE ORDER OVER. I CONFIRMED THAT HER ADDRESS WAS CORRECT. HER CELL PHONE IS [phone] AND HER SOCIAL SECURITY NUMBER IS [phone] AND NEITHER OF THESE NUMBERS WERE ON HER FACESHEET. I EXPLAINED THAT I HAVE TO MAKE SURE THE HOME HEALTH HAS THIS INFORMATION TO BILL HER INSURANCE AND TO HAVE A WAY TO CONTACT HER ABOUT COMING TO HER HOUSE AND SUCH. SHE STATED UNDERSTANDING. DCP- Discharge Planning Updated by [email or web address]: Dennise Hamm on 09/24/18 5:[address] Patient Name: CK HENDRICKS Admission Status: ER Accout number: [id number] Admission Date: 09-21-2018 : 1945 Admission Diagnosis:GASTROINTESTINAL HEMORRHAGE, UNSPECIFIED Attending: JARED STOVER Current LOS: 3 Anticipated DC Date: Planned Disposition: Home with Home Health Primary Insurance: MEDICARE A & B Discharge Planning Comments: CM met with patient at bedside. Patient states that she lives alone. Patient states that she plans to return to her home upon discharge. Patient states that she has a walker at home. Patient states that she would like home health when discharged. CM will continue to follow and assist as needed with discharge planning / needs. Candy Packer: Dennise Hamm DCPIA - Discharge Planning Initial Assessment Updated by [email or web address]: Dennise Hamm on 09/24/18 6:42 pm * Is the patient Alert and Oriented? Yes * How many steps to enter\exit or inside your home? * PCP ANGELITA Sant[facility] [place] * [facility] * Preadmission Environment Home Alone * ADLs Independent * Equipment Walker * List name and contact numbers for known caregivers / representatives who currently or will assist patient after discharge: VINCENT BROOKLYN Santoyo DAUGHTER - [phone] LON Santoyo SON-N-LAW- [phone] * Verbal permission to speak to the caregivers and representatives has been obtained from the patient. N/A * Community resources currently utilized None * Additional services required to return to the preadmission environment? No * Can the patient safely return to the preadmission environment? Yes * Has this patient been hospitalized within the prior 30 days at any hospital? No Coverage Notice Reviewer: [id number] Yarelis Piña Notice Issued Date-Time: 09/25/2018 11:18 Notice Type: Patient Choice Letter Notice Delivered To: Patient Relationship to Patient: Self Semiconductors Wafer Breaker Name: Delivery Method: - Noa Days: Prior Verbal Notification: Recipient Understood Notice: Recipient Signature: Med Rec Note Co-signed by Attending: Coverage Notice Comment: Last DP export: 09/26/18 9:06 am Patient Name: CK HENDRICKS Page 30992 at 1107 All edits/amendments must be made on the electronic document DICTATION DATE: 09/26/181105 SOFTWARE TECHNICAL LEAD: JENELLE 09/26/18 110 RPT#: [id number] DC DATE: STATUS: ADM IN [facility] [address] [place] [address] END OF REPORT
[2018-09-26] MEDS ORDERED: PLAVIX75 MG PO ×2 (11:13→13:38)
[2018-09-26 12:27] VITALS: BP 163/90
[2018-09-26] MEDS ORDERED: LISINOPRIL-HCT1 EAC7 PO (13:29)
--- NOTE | 2018-09-26 16:27 | MORECARE ---
CASE MANAGEMENT DISCHARGE SUMMARY PATIENT: CK HENDRICKS UNIT: [id number] ADM DATE: 09/21/18 AGE: 73 : 45 SEX: F ROOM/BED: D.1404 AUTHOR: FRANCK,DOC PHYSICIAN: REFERRING PHYSICIAN: JARED STOVER MD DATE OF SERVICE: 09/26/18 Discharge Plan Patient Name: CK HENDRICKS Facility: [facility]:[place] : 1945 Planned Disposition: Home with Home Health Anticipated Discharge Date: Discharge Date: 09/26/2018 Expected LOS: Initial Reviewer: [email or web address] Initial Review Date: 09/24/2018 Generated: 09/26/18 5:26 pm Comments DCP- Discharge Planning Updated by [id number]: Mandy Piña on 09/26/18 3:[address] VINCENT, PATIENTS DAUGHTER IN ROOM WAITING ON DISCHARGE ORDERS TO TAKE THE PATIENT HOME. WE DISCUSSED THE IMPORTANCE OF GOING TO HER FOLLOW UP APPOINTMENTS SO THAT THE DOCTOR WILL SIGN HOME HEALTH ORDERS FOR HER AT HOME, AND KEEPING THE APPOINTMENT AFTER THAT SO THAT SHE CAN CONTINUE TO GET HER PRESCRIPTIONS FILLED AND TAKE HER MEDS LIKE ORDERED. IN THE PRESENCE OF HER DAUGHTER SHE IS IN AGREEMENT TO THIS. CM WILL CONTINUE TO FOLLOW. DCP- Discharge Planning Updated by [email or web address]: Mandy Piña on 09/26/18 10:[address] RECEIVED A VOICEMAIL FROM [facility] WITH DR GOLDSTEIN'S OFFICE. THE PATIENT HAS NOT BEEN SEEN BY HIM SINCE JUNE OF 2017 AND WILL REQUIRE AN APPOINTMENT SOON POSSIBLE SO THE ORDERS COULD BE SIGNED. I WILL ENTER A NURSING MESSAGE TO THIS. DCP- Discharge Planning Updated by [id number]: Mandy Piña on 09/26/18 8:[address] MET IN ROOM WITH PATIENT TO ASK HOW LONG IT HAS BEEN SINCE SHE SAW HER PCP CASSANDRA GOLDSTEIN. SHE STATE IT HAS BEEN A WHILE. I EXPLAINED THAT SHE MAY HAVE TO MAKE AN APPOINTMENT TO SEE HIM BEFORE HE WILL SIGN HOME HEALT H ORDERS. I HAVE EXPLAINED THAT I LEFT A MESSAGE FOR [facility] AT HIS OFFICE ([phone] TO SEE IF HE WOULD BE WILLING TO SIGN ORDERS OR IF SHE NEEDED AN APPOINTMENT FIRST, AND I AM WAITING ON A RETURN CALL. I ALSO EXPLAINED THAT I SPOKE WITH MATT AT [employer] [employer] IN [place] ([phone]) AND I WILL GO AHEAD AND FAX THE ORDER OVER. I CONFIRMED THAT HER ADDRESS WAS CORRECT. HER CELL PHONE IS [phone] AND HER SOCIAL SECURITY NUMBER IS [phone] AND NEITHER OF THESE NUMBERS WERE ON HER FACESHEET. I EXPLAINED THAT I HAVE TO MAKE SURE THE HOME HEALTH HAS THIS INFORMATION TO BILL HER INSURANCE AND TO HAVE A WAY TO CONTACT HER ABOUT COMING TO HER HOUSE AND SUCH. SHE STATED UNDERSTANDING. DCP- Discharge Planning Updated by [id number]: Dennise Hamm on 09/24/18 5:[address] Patient Name: CK HENDRICKS Admission Status: ER Accout number: [id number] Admission Date: 09-21-2018 : 1945 Admission Diagnosis:GASTROINTESTINAL HEMORRHAGE, UNSPECIFIED Attending: JARED STOVER Current LOS: 3 Anticipated DC Date: Planned Disposition: Home with Home Health Primary Insurance: MEDICARE A & B Discharge Planning Comments: CM met with patient at bedside. Patient states that she lives alone. Patient states that she plans to return to her home upon discharge. Patient states that she has a walker at home. Patient states that she would like home health when discharged. CM will continue to follow and assist as needed with discharge planning / needs. River Tester: Dennise Hamm DCPIA - Discharge Planning Initial Assessment Updated by [email or web address]: Dennise Hansel on 09/24/18 6:42 pm * Is the patient Alert and Oriented? Yes * How many steps to enter\exit or inside your home? * PCP [facility]GELITA [facility] * [facility] * Preadmission Environment Home Alone * ADLs Independent * Equipment Walker * List name and contact numbers for known caregivers / representatives who currently or will assist patient after discharge: VINCENT BROOKLYN - DAUGHTER - [phone] LON BARAHONA - SON-N-LAW- [phone] * Verbal permission to speak to the caregivers and representatives has been obtained from the patient. N/A * Community resources currently utilized None * Additional services required to return to the preadmission environment? No * Can the patient safely return to the preadmission environment? Yes * Has this patient been hospitalized within the prior 30 days at any hospital? No Coverage Notice Reviewer: [id number] Yarelis Piña Notice Issued Date-Time: 09/25/2018 11:18 Notice Type: Patient Choice Letter Notice Delivered To: Patient Relationship to Patient: Self Mobility Scooter Repairer Name: Delivery Method: - Noa Days: Prior Verbal Notification: Recipient Understood Notice: Recipient Signature: Med Rec Note Co-signed by Attending: Coverage Notice Comment: Last DP export: 09/26/18 10:07 am Patient Name: CK HENDRICKS Page 10086 at 1627 All edits/amendments must be made on the electronic document DICTATION DATE: 09/26/186 GROUP HOME PARAPROFESSIONAL: JENELLE 09/26/18 1626 RPT#: [id number] DC DATE:09/26/18 STATUS: DIS IN [facility] [address] [place] [address] END OF REPORT
--- NOTE | 2018-09-26 18:00 | MORECARE ---
CASE MANAGEMENT DISCHARGE SUMMARY PATIENT: CK HENDRICKS UNIT: [id number] ADM DATE: 09/21/18 AGE: 73 : 45 SEX: F ROOM/BED: D.1234 AUTHOR: FRANCK,DOC PHYSICIAN: REFERRING PHYSICIAN: JARED STOVER MD DATE OF SERVICE: 09/26/18 Discharge Plan Patient Name: CK HENDRICKS Facility: [facility]:[place] : 1945 Planned Disposition: Home with Home Health Anticipated Discharge Date: Discharge Date: 09/26/2018 Expected LOS: Initial Reviewer: [email or web address] Initial Review Date: 09/24/2018 Generated: 09/26/18 7:00 pm Comments DCP- Discharge Planning Updated by [email or web address]: Mandy Piña on 09/26/18 3:[address] VINCENT, PATIENTS DAUGHTER IN ROOM WAITING ON DISCHARGE ORDERS TO TAKE THE PATIENT HOME. WE DISCUSSED THE IMPORTANCE OF GOING TO HER FOLLOW UP APPOINTMENTS SO THAT THE DOCTOR WILL SIGN HOME HEALTH ORDERS FOR HER AT HOME, AND KEEPING THE APPOINTMENT AFTER THAT SO THAT SHE CAN CONTINUE TO GET HER PRESCRIPTIONS FILLED AND TAKE HER MEDS LIKE ORDERED. IN THE PRESENCE OF HER DAUGHTER SHE IS IN AGREEMENT TO THIS. CM WILL CONTINUE TO FOLLOW. DCP- Discharge Planning Updated by [email or web address]: Mandy Piña on 09/26/18 10:[address] RECEIVED A VOICEMAIL FROM [facility] WITH DR GOLDSTEIN'S OFFICE. THE PATIENT HAS NOT BEEN SEEN BY HIM SINCE JUNE OF 2017 AND WILL REQUIRE AN APPOINTMENT SOON POSSIBLE SO THE ORDERS COULD BE SIGNED. I WILL ENTER A NURSING MESSAGE TO THIS. DCP- Discharge Planning Updated by [email or web address]: Mandy Piña on 09/26/18 8:[address] MET IN ROOM WITH PATIENT TO ASK HOW LONG IT HAS BEEN SINCE SHE SAW HER PCP CASSANDRA GOLDSTEIN. SHE STATE IT HAS BEEN A WHILE. I EXPLAINED THAT SHE MAY HAVE TO MAKE AN APPOINTMENT TO SEE HIM BEFORE HE WILL SIGN HOME HEALT H ORDERS. I HAVE EXPLAINED THAT I LEFT A MESSAGE FOR [facility] AT HIS OFFICE ([phone] TO SEE IF HE WOULD BE WILLING TO SIGN ORDERS OR IF SHE NEEDED AN APPOINTMENT FIRST, AND I AM WAITING ON A RETURN CALL. I ALSO EXPLAINED THAT I SPOKE WITH MATT AT [employer] IN [place] ([phone]) AND I WILL GO AHEAD AND FAX THE ORDER OVER. I CONFIRMED THAT HER ADDRESS WAS CORRECT. HER CELL PHONE IS [phone] AND HER SOCIAL SECURITY NUMBER IS [phone] AND NEITHER OF THESE NUMBERS WERE ON HER FACESHEET. I EXPLAINED THAT I HAVE TO MAKE SURE THE HOME HEALTH HAS THIS INFORMATION TO BILL HER INSURANCE AND TO HAVE A WAY TO CONTACT HER ABOUT COMING TO HER HOUSE AND SUCH. SHE STATED UNDERSTANDING. DCP- Discharge Planning Updated by [id number]: Dennise Hamm on 09/24/18 5:[address] Patient Name: CK HENDRICKS Admission Status: ER Accout number: [id number] Admission Date: 09-21-2018 : 1945 Admission Diagnosis:GASTROINTESTINAL HEMORRHAGE, UNSPECIFIED Attending: JARED STOVER Current LOS: 3 Anticipated DC Date: Planned Disposition: Home with Home Health Primary Insurance: MEDICARE A & B Discharge Planning Comments: CM met with patient at bedside. Patient states that she lives alone. Patient states that she plans to return to her home upon discharge. Patient states that she has a walker at home. Patient states that she would like home health when discharged. CM will continue to follow and assist as needed with discharge planning / needs. Motor Vehicle Inspector: Dennise Hamm DCPIA - Discharge Planning Initial Assessment Updated by [email or web address]: Dennise Hansel on 09/24/18 6:42 pm * Is the patient Alert and Oriented? Yes * How many steps to enter\exit or inside your home? * PCP ANGELITA [facility] * [facility] * Preadmission Environment Home Alone * ADLs Independent * Equipment Walker * List name and contact numbers for known caregivers / representatives who currently or will assist patient after discharge: VINCENT BROOKLYN - DAUGHTER - [phone] LON BARAHONA - SON-N-LAW- [phone] * Verbal permission to speak to the caregivers and representatives has been obtained from the patient. N/A * Community resources currently utilized None * Additional services required to return to the preadmission environment? No * Can the patient safely return to the preadmission environment? Yes * Has this patient been hospitalized within the prior 30 days at any hospital? No Coverage Notice Reviewer: [id number] Yarelis Mandylisy Piña Notice Issued Date-Time: 09/25/2018 11:18 Notice Type: Patient Choice Letter Notice Delivered To: Patient Relationship to Patient: Self Silo Painter Name: Delivery Method: - Noa Days: Prior Verbal Notification: Recipient Understood Notice: Recipient Signature: Med Rec Note Co-signed by Attending: Coverage Notice Comment: Last DP export: 09/26/18 3:27 pm Patient Name: CK HENDRICKS Page 55258 at 1800 All edits/amendments must be made on the electronic document DICTATION DATE: 09/26/18 1800 HEALTH AND SAFETY TRAINER: JENELLE 09/26/18 1800 RPT#: [id number] DC DATE:09/26/18 STATUS: DIS IN [facility] [address] [place] [address] END OF REPORT
--- NOTE | 2018-10-04 15:12 | EC ---
PATIENT:CK HENDRICKS DATE OF SERVICE: 09/21/18 SEX: F MEDICAL RECORD: [id number] DATE OF : [birth year] LOCATION:D.M2 D.211 AGE OF PATIENT: 73 ADMISSION DATE: 09/21/18 REFERRING PHYSICIAN: INTERPRETING PHYSICIAN: JANINA VARMA MD ECHOCARDIOGRAM REPORT ECHO CHARGES 4 ECHO COMPLETE Date: 09/22/18 CLINICAL DIAGNOSIS: AR ECHOCARDIOGRAPHIC MEASUREMENTS (adult normal given) AC root (d.<3.7cm) 2.8 cm LV Septum d (<1.2 cm> 1.6 cm Valve Excursion 1.5 cm LV Septum (systole) 1.9 cm Left Atria (s.<4.0cm> 3.1 cm LVPW d(<1.2cm) 1.5 cm RV (d.<2.3cm) 3.7 cm LVPW (sytole) 1.9 cm LV diastole(<5.6CM) 4.4 cm MV E-F(>70mm/sec) cm LV systole 2.9 cm LVOT Diameter 2.0 cm MV exc.(>10mm) 2.0 cm Est.ejection fraction (50-75%) % DOPPLER: LVIT cm/sec A 93.0 cm/sec E 52.0 cm/sec LA cm/sec RVSP 17 mmHg LVOT 114 cm/sec AOP1/2T m/s Asc. Ao 147 cm/sec RVOT 155 cm/sec RA cm/sec PA 161 cm/sec AV Gradient Peak 8.69 mmHg AV Mean 4.57 mmHg AV Area 2.5 cm MV Gradient Peak 7.17 mmHg MV Mean 3.49 mmHg MV Area cm COMMENTS: Garbage Pick Up Man: Phil KELLY Bunghole Borer: 1 Dr. Varma TAPE# PACS Pericardial Effusion N DATE OF SERVICE: 09/23/2018 ECHOCARDIOGRAM FINDINGS: 1. Left ventricular chamber size is within normal limits. Left ventricular systolic function is normal. Overall ejection fraction estimated at 65%. 2. Left atrium, right atrium, and right ventricular chamber sizes are within normal limits. 3. Valvular structures have normal structure and motion. ECHOCARDIOGRAM REPORT [id number] CK HENDRICKS 4. Doppler interrogation reveals no significant valvular insufficiency or stenosis. 5. No evidence of pericardial effusion or left ventricular thrombus. TRANSINT:[id number] Voice Confirmation ID: [id number] DOCUMENT ID: [id number] JANINA VARMA MD at 1512 CC: [id number] DICTATION DATE: 09/23/18851 HEALTH SAFETY MANAGER: 09/23/18 09 DIS IN 09/26/18 [facility] [address] [place] [address]
--- NOTE | 2018-10-04 15:12 | CN ---
PATIENT NAME:CK KAMINSKI MEDICAL RECORD: [id number] : [birth year] LOCATION:D. D.2114 ADMIT DATE: 09/21/18 ACCOUNT: [id number] CONSULTING PHYSICIAN: JANINA LAGUERRE MD REFERRING PHYSICIAN: JARED STOVER MD DATE OF CONSULTATION: 09/22/2018 DIAGNOSES: 1. Myocardial infarction. 2. Coronary artery disease. 3. GI bleed. 4. Anemia. HISTORY: Mrs. Kaminski presents with weakness, shortness of breath, and chest pain yesterday. She was found to have hemoglobin of 5.5. She has noticed black tarry stools for quite some time. She has not had this evaluated. She has not had a cardiac history in the past. Her EKG is with no acute ST-T abnormalities. Troponin is 13. Hemoglobin is now 7.8. She continues to have chest pain. She is quite tachycardic at sinus at 100. She is not having dysrhythmias. PHYSICAL EXAMINATION: GENERAL APPEARANCE: Well-nourished, well-developed, appears stated age. Level of distress, comfortable. PSYCHIATRIC: Mental status, alert, normal affect. Orientation, oriented to time, place and person. EYES: Lids and conjunctiva, noninjected. No discharge, no pallor. ENT: Lips, teeth, gums, normal dentition. Oropharynx, no cyanosis, no pallor. NECK: Carotid arteries, bilateral normal upstroke, no bruits, no thrills. JUGULAR VEINS: No jugular venous pressure or distention. CERVICAL LYMPH NODES: Nontender, nonenlarged. THYROID: Not enlarged. Nontender. No nodules. LUNGS: Respiratory effort, unlabored. CHEST: Normal curvature. No thoracic deformity. No chest wall tenderness. Percussion, resonant. Auscultation, clear. No wheezes, no rales, no rhonchi. CARDIOVASCULAR: Precordial exam, nondisplaced. No heaves or pericardial thrills. Rate and rhythm, regular. Heart sounds, normal S1, normal S2. No S3, no gallop, no rub. Systolic murmur, not heard. Diastolic murmur, not heard. EXTREMITIES: No cyanosis, no edema. Peripheral pulses, full and equal in all extremities, except as noted. No bruits appreciated. ABDOMEN: Soft, nondistended. Normal aorta. No bruit. Nontender. No masses. Liver, nontender, no hepatomegaly. Spleen, nontender, no splenomegaly. MUSCULOSKELETAL: No joint tenderness. No joint swelling. No erythema. NEUROLOGICAL: Normal gait, normal strength, normal tone. SKIN: Warm and dry. OVERALL IMPRESSION: Anemia, GI bleed. At this time, due to continued chest pain, we will give her 2 more units of packed red blood cells. From a cardiac standpoint, we will hold off on any antiplatelet medication secondary to the continued bleeding. Beta-mary with IV Lopressor, changing to p.o. when she takes p.o. We will get an echocardiogram to evaluate LV function. TRANSINT:[id number] Voice Confirmation ID: [id number] DOCUMENT ID: [id number] CONSULT REPORT [id number] CK KAMINSKI JEFFREY MD at 1512 CC: [id number] DICTATION DATE: 09/22/18 0949 BURLAPPER: 09/22/18 1330 DIS IN 09/26/18 [facility] [id number] [place] [address]
--- NOTE | 2018-10-04 15:12 | OP ---
PATIENT NAME: CK HENDRICKS MEDICAL RECORD: [id number] :[birth year] LOCATION:D.M2 D.2114 ADMISSION DATE:09/21/18 SURGEON: JANINA LAGUERRE MD DATE OF OPERATION: 09/25/2018 PROCEDURES: 1. PTCA stent LAD. 2. Left heart catheterization. 3. Selective coronary angiography. 4. Left ventriculogram. INDICATION: Angina and coronary artery disease. PROCEDURE IN DETAIL: After informed consent was obtained and after a detailed description of risks, benefits as well as alternative therapies, the patient elected to proceed with angiogram and angioplasty. The right radial area was prepped and draped in normal sterile fashion. Right radial artery was cannulated via modified Seldinger technique with placement of 6-Japanese sheath. All catheters exchanged through this sheath. FINDINGS: Left ventriculogram was performed in standard 30-degree PARIKH view, reveals good cardiac wall motion, ejection fraction 35%. SELECTIVE CORONARY ANGIOGRAPHY: 1. Left main is with no significant angiographic disease. 2. Left anterior descending has 90% stenosis in the proximal vessel. 3. Left circumflex has moderate irregularities, but no flow-limiting stenosis. 4. Right coronary is small, nondominant, diffusely diseased. PTCA STENT OF THE LAD: The stent used was a 3.5 x 12 mm Integrity. Result was 0% residual stenosis. OVERALL IMPRESSION: Successful PTCA stent of the LAD going from 90% initial stenosis to 0% residual. TRANSINT:[id number] Voice Confirmation ID: [id number] DOCUMENT ID: [id number] JANINA LAGUERRE MD at 1512 CC: [id number] DICTATION DATE: 09/25/18 1002 TRESTLE MAINTERNANCE LABORER: 09/25/18 1217 DIS IN 09/26/18 [id number] [place] [address]
--- NOTE | 2018-10-07 11:06 | MORECARE ---
CASE MANAGEMENT DISCHARGE SUMMARY PATIENT: CK HENDRICKS UNIT: [id number] ADM DATE: 09/21/18 AGE: 73 : 45 SEX: F ROOM/BED: D.3504 AUTHOR: FRANCK,DOC PHYSICIAN: REFERRING PHYSICIAN: JARED STOVER MD DATE OF SERVICE: 10/07/18 Discharge Plan Patient Name: CK HENDRICKS Facility: [facility]:[place] : 1945 Planned Disposition: Home with Home Health Anticipated Discharge Date: Discharge Date: 09/26/2018 Expected LOS: Initial Reviewer: [email or web address] Initial Review Date: 09/24/2018 Generated: 10/07/18 12:06 pm Comments DCP- Discharge Planning Updated by [email or web address]: Mandy Piña on 09/26/18 3:[address] VINCENT, PATIENTS DAUGHTER IN ROOM WAITING ON DISCHARGE ORDERS TO TAKE THE PATIENT HOME. WE DISCUSSED THE IMPORTANCE OF GOING TO HER FOLLOW UP APPOINTMENTS SO THAT THE DOCTOR WILL SIGN HOME HEALTH ORDERS FOR HER AT HOME, AND KEEPING THE APPOINTMENT AFTER THAT SO THAT SHE CAN CONTINUE TO GET HER PRESCRIPTIONS FILLED AND TAKE HER MEDS LIKE ORDERED. IN THE PRESENCE OF HER DAUGHTER SHE IS IN AGREEMENT TO THIS. CM WILL CONTINUE TO FOLLOW. DCP- Discharge Planning Updated by [email or web address]: Mandy Piña on 09/26/18 10:[address] RECEIVED A VOICEMAIL FROM [facility] WITH DR GOLDSTEIN'S OFFICE. THE PATIENT HAS NOT BEEN SEEN BY HIM SINCE JUNE OF 2017 AND WILL REQUIRE AN APPOINTMENT SOON POSSIBLE SO THE ORDERS COULD BE SIGNED. I WILL ENTER A NURSING MESSAGE TO THIS. DCP- Discharge Planning Updated by [email or web address]: Mandy Piña on 09/26/18 8:[address] MET IN ROOM WITH PATIENT TO ASK HOW LONG IT HAS BEEN SINCE SHE SAW HER PCP CASSANDRA GOLDSTEIN. SHE STATE IT HAS BEEN A WHILE. I EXPLAINED THAT SHE MAY HAVE TO MAKE AN APPOINTMENT TO SEE HIM BEFORE HE WILL SIGN HOME HEALT H ORDERS. I HAVE EXPLAINED THAT I LEFT A MESSAGE FOR [facility] AT HIS OFFICE ([phone] TO SEE IF HE WOULD BE WILLING TO SIGN ORDERS OR IF SHE NEEDED AN APPOINTMENT FIRST, AND I AM WAITING ON A RETURN CALL. I ALSO EXPLAINED THAT I SPOKE WITH MATT AT [employer] IN [place] ([phone]) AND I WILL GO AHEAD AND FAX THE ORDER OVER. I CONFIRMED THAT HER ADDRESS WAS CORRECT. HER CELL PHONE IS [phone] AND HER SOCIAL SECURITY NUMBER IS [phone] AND NEITHER OF THESE NUMBERS WERE ON HER FACESHEET. I EXPLAINED THAT I HAVE TO MAKE SURE THE HOME HEALTH HAS THIS INFORMATION TO BILL HER INSURANCE AND TO HAVE A WAY TO CONTACT HER ABOUT COMING TO HER HOUSE AND SUCH. SHE STATED UNDERSTANDING. DCP- Discharge Planning Updated by [email or web address]: Dennise Hamm on 09/24/18 5:[address] Patient Name: CK HENDRICKS Admission Status: ER Accout number: [id number] Admission Date: 09-21-2018 : 1945 Admission Diagnosis:GASTROINTESTINAL HEMORRHAGE, UNSPECIFIED Attending: JARED STOVER Current LOS: 3 Anticipated DC Date: Planned Disposition: Home with Home Health Primary Insurance: MEDICARE A & B Discharge Planning Comments: CM met with patient at bedside. Patient states that she lives alone. Patient states that she plans to return to her home upon discharge. Patient states that she has a walker at home. Patient states that she would like home health when discharged. CM will continue to follow and assist as needed with discharge planning / needs. Bistro Server: Dennise Hamm DCPIA - Discharge Planning Initial Assessment Updated by [email or web address]: Dennise Hamm on 09/24/18 6:42 pm * Is the patient Alert and Oriented? Yes * How many steps to enter\exit or inside your home? * PCP [facility] * [facility] * Preadmission Environment Home Alone * ADLs Independent * Equipment Walker * List name and contact numbers for known caregivers / representatives who currently or will assist patient after discharge: VINCENT [place] - DAUGHTER - [phone] LON BARHAONA - SON-N-LAW- [phone] * Verbal permission to speak to the caregivers and representatives has been obtained from the patient. N/A * Community resources currently utilized None * Additional services required to return to the preadmission environment? No * Can the patient safely return to the preadmission environment? Yes * Has this patient been hospitalized within the prior 30 days at any hospital? No External Providers External Provider: OTHER-OTHER Next Contact Date: Service Request Date: Service Type: Resolution: Reviewer: Comments: Coverage Notice Reviewer: [email or web address] Yarelis Mandy Piña Notice Issued Date-Time: 09/25/2018 11:18 Notice Type: Patient Choice Letter Notice Delivered To: Patient Relationship to Patient: Self Contract Driver Name: Delivery Method: - Noa Days: Prior Verbal Notification: Recipient Understood Notice: Recipient Signature: Med Rec Note Co-signed by Attending: Coverage Notice Comment: Last DP export: 09/26/18 5:00 pm Patient Name: CK HENDRICKS Page [id number] at 1106 All edits/amendments must be made on the electronic document DICTATION DATE: 10/07/181104 WASTEWATER TREATMENT ENGINEER: JENELLE 10/07/181104 RPT#: [id number] DC DATE:09/26/18 STATUS: DIS IN [facility] [address] [place] [address] END OF REPORT
== END 2018-09-26 15:44 | disposition home health service (06) | DRG 249 ==
LOC: EDBD 22:44 → D.ER 22:44 → D.CVICU 23:38 → D.M2 23:38
PROVIDERS: Family Medicine; Internal Medicine Interventional Cardiology; ADMIT Internal Medicine Nephrology; ATTEND Internal Medicine Nephrology
PROC: 0DJD8ZZ Inspection of Lower Intestinal Tract, Via Natural or Artificial Opening Endoscopic (ICD-10-PCS; 2018-09-23)
PROC: 4A023N7 Measurement of Cardiac Sampling and Pressure, Left Heart, Percutaneous Approach (ICD-10-PCS; 2018-09-25)
PROC: B2111ZZ Fluoroscopy of Multiple Coronary Arteries using Low Osmolar Contrast (ICD-10-PCS; 2018-09-25)
PROC: B2151ZZ Fluoroscopy of Left Heart using Low Osmolar Contrast (ICD-10-PCS; 2018-09-25)
PROC: 02703DZ Dilation of Coronary Artery, One Artery with Intraluminal Device, Percutaneous Approach (ICD-10-PCS; principal; 2018-09-25 09:05)
DX: I21.A1 Myocardial infarction type 2 (principal); D50.9 Iron deficiency anemia, unspecified; E03.9 Hypothyroidism, unspecified; I10 Essential (primary) hypertension; E87.6 Hypokalemia; F17.200 Nicotine dependence, unspecified, uncomplicated; K64.3 Fourth degree hemorrhoids; I25.119 Atherosclerotic heart disease of native coronary artery with unspecified angina pectoris

== ENCOUNTER 2018-10-04 14:46 | Inpatient (IN) | payer MEDICARE, BC ==
[2018-10-04] VITALS (18 sets, daily range): BP systolic 126–153; BP diastolic 80–95; BMI 27.3
[~2018-10-04] VITALS: Ht 160 cm; Wt 71.0 kg
--- NOTE | ~2018-10-04 | HEMODYNAMI ---
PATIENT:CK HENDRICKS MEDICAL RECORD: [id number] : [birth year] [facility] ADMISSION DATE: 10/04/18 Generatedon:10/04/201819:44 Patient name: CK HENDRICKS Patient #: [id number] SSN: : 1945 Date of study: 10/04/2018 Page: Of Hemodynamic Procedure Report Patient Data Patient Demographics Procedure consent was obtained First Name: CK Gender: Female Last Name: ELADIO : 1945 Patient #: [id number] Age: 73 year(s) Race: Unknown Additional ID: [id number] Contact details [address]: [address] [place] [address] State: [place] City: [place] Zip code: [address] Admission Admission Data Admission Date: 10/04/2018 Admission Time: 15:24 [facility] Height (in.): 62.99 BSA: 1.73 (m2) Height (cm.): 160 BMI: 27.34 (kg/m2) Weight (lbs.): 154.32 Weight (kg.): 70 Lab Results Lab Result Date: 10/04/2018 Lab Result Time: 0:00 Biochemistry Name Units Result Min Max BUN mg/dl 8 --(*---)-- 7 18 Creatinine mg/dl 0.9 --(-*--)-- 0.6 1.3 CBC Name Units Result Min Max Hematocrit % 41.2 -*(----)-- 42 54 Hemoglobin g/dl 11.8 *-(----)-- 13.5 17.5 Procedure Procedure Types Cath Procedure Diagnostic Procedure LHC Coronaries only PCI Procedure Coronary Stent Coronary Stent Initial Procedure Description Procedure Date Procedure Date: 10/04/2018 Procedure Start Time: 19:28 Procedure End Time: 19:42 Procedure Staff Name Function Juanjose Peacock RT Monitor Elliot Varma MD Performing Physician Delma Torres RT Scrub Debbie Iglesias RN Nurse Procedure Data Cath Procedure Fluoroscopy Diagnostic fluoroscopy Total fluoroscopy Time: 1.9 time: 1.9 min min Diagnostic fluoroscopy Total fluoroscopy dose: 244 dose: 244 mGy mGy Contrast Material Contrast Material Type Amount (ml) Isovue 300 38 Entry Location Entry Primary Successful Side Size Upsize Upsize Entry Closure Pacheco ccessful Closure Location (Fr) 1 (Fr) 2 (Fr) Remarks Device Remarks Radial Right 6 Fr Mechanical artery Short Compression Estimated blood loss: 10 ml Procedure Complications No complications Procedure Medications Medication Administration Route Dosage Oxygen etCO2 Nasal cannula 2 l/min Lidocaine 2% added to field 20 Heparin Flush Bag added to field 2 bags (1000units/500ml NS) 0.9% NaCl I.V. 100 ml/hr Lopressor I.V. 5 mg Heparin Bolus I.V. 4000 units Integrilin (Bolus I.V. 6.2 ml 2mg/ml) Integrilin (Bolus I.C. 6.2 ml 2mg/ml) Effient P.O. 60 mg Versed I.V. 1 mg Fentanyl I.V. 50 mcg Versed I.V. 1 mg Fentanyl I.V. 50 mcg Hemodynamics Rest BSA: 1.73 (m2) HGB: 11.8 (g/dl) O2 Consumption: Estimated: 176.65 (ml/min) O2 Co nsumption indexed: Estimated:102.11 (ml/min/m) Heart Rate: 98 (bpm) Snapshots Pre Cath Intra NCS Post Cath Vital Signs Time Heart Resp SPO2 etCO2 NIBP (mmHg) Rhythm Pain Sedation Rate (ipm) (%) (mmHg) Status Level (bpm) 19:22:43 100 18 95 26.1 145/84(115) NSR 0 (11) 10(A) , No pain 19:26:59 92 14 100 37.3 131/82(110) NSR 0 (11) 10(A) , No pain 19:31:15 81 10 100 14.9 120/68(98) NSR 0 (11) 9(A) , No pain 19:35:27 78 11 99 40.4 116/69(98) NSR 0 (11) 9(A) , No pain 19:39:39 82 11 100 0 106/64(86) NSR 0 (11) 10(A) , No pain Medications Time Medication Route Dose Verified Delivered Reason Notes Effectiveness by by 18:55:22 Oxygen etCO2 2 Elliot Vedaie used for Nasal l/min Avani Iglesias RN procedure cannula 18:55:30 Lidocaine 2% added 20ml Elliot Zarate for local to vial Avani Varma MD anesthetic field 18:55:36 Heparin Flush added 2 Elliot Elliot used for Bag to bags Avani Varma MD procedure (1000units/500ml field NS) 18:55:54 0.9% NaCl I.V. 100 Elliot Lewis Per physician ml/hr Avani Iglesias RN 19:22:05 Lopressor I.V. 5 mg Elliot Lewis Per physician Avani Iglesias RN 19:25:04 Fentanyl I.V. 50 Elliot Lewis for sedation mcg Avani Iglesias RN 19:25:57 Versed I.V. 1 mg Elliot Lewis for sedation Avani Iglesias RN 19:27:33 Versed I.V. 1 mg Elliot Lewis for sedation Avani Iglesias RN 19:27:36 Fentanyl I.V. 50 Elliot Lewis for sedation mcg Avani Iglesias RN 19:29:05 Heparin Bolus I.V. 4000 Elliot Lewis for verif ied units Avani Iglesias RN anticoagulation with dr varma 19:30:09 Integrilin I.V. 6.2 Elliot Lewis for Waste d (Bolus 2mg/ml) ml Avani Iglesias RN antiplatelet 3.8 ml therapy of vial 19:32:19 Integrilin I.C. 6.2 Elliot Zarate for Waste d (Bolus 2mg/ml) ml Avani Varma MD antiplatelet 3.2 ml therapy of vial 19:40:38 Effient P.O. 60 mg Elliot Lewis for Avani Iglesias RN antiplatelet therapy Procedure Log Time Note 18:48:02 Signed procedure consent form obtained from patient. 18:48:04 Time tracking: Call back (After hours or weekends) 18:48:08 Plan of Care:Hemodynamics will remain stable., Cardiac rhythm will remain stable., Comfort level will be maintained., Respiratory function will remain adequate., Patient/ family verbilizes understanding of procedure., Procedure tolerated without complication., Recovers from procedure without complications.. 18:48:50 Debbie Iglesias RN sent for patient. Start room use. 18:55:22 Oxygen 2 l/min etCO2 Nasal cannula was administered by Debbie Iglesias RN; used for procedure; 18:55:30 Lidocaine 2% 20ml vial added to field was administered by Elliot Varma MD; for local anesthetic; 18:55:36 Heparin Flush Bag (1000units/500ml NS) 2 bags added to field was administered by Elliot Varma MD; used for procedure; 18:55:54 0.9% NaCl 100 ml/hr I.V. was administered by Debbie Iglesias RN; Per physician; 18:56:18 Lab Result : BUN 8 mg/dl 18:56:18 Lab Result : Hemoglobin 11.8 g/dl 18:56:18 Lab Result : Creatinine 0.9 mg/dl 18:56:18 Lab Result : Hematocrit 41.2 % 18:57:51 Patient Height : 62.99 inches 18:57:54 Patient Weight : 154.32 lbs 19:01:31 Use device set CATH PACK 19:01:33 ACIST Syringe (53749) opened to sterile field. 19:01:33 ACIST Hand Control (72001) opened to sterile field. 19:01:33 ACIST Manifold (22360) opened to sterile field. 19:01:34 Medline Cath Pack ([id number]) opened to sterile field. 19:01:34 Bag Decanter (2002S) opened to sterile field. 19:01:35 DIAGNOSTIC WIRE .035 260cm J wire (681753) opened to sterile field. 19:02:01 CHOICE PT Extra Support 182cm wire ([id number]) opened to sterile field. 19:02:02 INFLATOR Merit BasixCompak (DC5947) opened to sterile field. 19:13:44 Patient received from CVICU to CCL 1 Alert and oriented. Tansferred to table in Supine position. 19:13:46 Warm blankets applied, and moriah hugger turned on for patient comfort. 19:13:46 Correct patient and procedure confirmed by team. 19:13:47 ECG and BP/O2 sat monitors applied to patient. 19:21:39 Vital chart was started 19:22:05 Lopressor 5 mg I.V. was administered by Debbie Iglesias RN; Per physician; 19:23:15 Baseline sample Acquired. 19:23:19 Rhythm: sinus rhythm 19:23:20 Full Disclosure recording started 19:23:25 H&P Date Dictated: 10/04/2018 Emergent; H&P N/A. 19:23:27 Pre-procedure instructions explained to patient. 19:23:27 Pre-op teaching completed and patient verbalized understanding. 19:23:29 Family unavailable. 19:23:31 Patient NPO since Midnight. 19:23:35 Is the patient allergic to Iodine/contrast media? No. 19:23:47 Is patient on blood thinner?No 19:23:54 Patient diabetic? No. 19:24:04 Previous problem with sedation/anesthesia? No ? 19:24:05 Snore? Yes 19:24:08 Sleep apnea? No 19:24:09 Deviated septum? No 19:24:10 Opens mouth fully? Yes 19:24:11 Sticks out tongue? Yes 19:24:13 Airway obstruction? No ? 19:24:17 Dentures? Yes IN 19:24:21 Pre procedure: right dorsailis pedis pulse 1+ Palpable, but thready & weak; easily obliterated 19:24:23 Modified Rasheed's test Ulnar < 7 seconds 19:24:25 Patient pain scale 0/10 ?. 19:24:30 IV patent on arrival in left forearm with 0.9% NaCl at O. 19:24:32 Lab results completed and on chart. 19:24:36 Right Radial & Right Groin area was prepped with chlora-prep and draped in sterile fashion 19:24:37 Alarms reviewed by R. N. 19:24:38 Sharps counted by scrub and verified by R.N. 19:24:39 --------ALL STOP TIME OUT------ 19:24:40 Final Timeout: patient, procedure, and site verified with staff and physician. All members of the team are in agreement. 19:24:42 Right Radial & Right Groin site verified by team. 19:24:47 Maximum allowable Isovue 300 dose 300ml. Physician notified. (300ml for normal creatinines. For patients with creatinine of 1.7 or higher multiply weight(kg) x 5 divided by creatinine.) 19:24:59 Fire Safety Assessment: A--An alcohol-based skin anteseptic being used preoperatively., C--Open oxygen or nitrous oxide is being used., D--An ESU, laser, or fiber-optic light is being used. 19:25:04 Fentanyl 50 mcg I.V. was administered by Debbie Iglesias RN; for sedation; 19:25:07 Physical assessment completed. ASA score P 2 - A patient with mild systemic disease as per Elliot Varma MD. 19:25:11 Sedation plan: IV Moderate Sedation Medication:Versed, Fentanyl 19::57 Versed 1 mg I.V. was administered by Debbie Iglesias RN; for sedation; 19::33 Versed 1 mg I.V. was administered by Debbie Iglesias RN; for sedation; 19::36 Fentanyl 50 mcg I.V. was administered by Debbie Iglesias RN; for sedation; 19::28 Procedure started. 19:28:45 Local anesthetic to right radial artery with Lidocaine 2% by Elliot Varma MD.INITIAL ACCESS ONLY 19:28:58 A 6 Fr Short sheath was inserted into the Right Radial artery 19:29:05 Heparin Bolus 4000 units I.V. was administered by Debbie Iglesias RN; for anticoagulation; verified with dr varma 19:29:30 6 Fr XBLAD 3.5 guide catheter was inserted over the wire 19:29:39 CPTXS wire advanced. 19:29:53 Wire advanced across lesion. 19:30:09 Integrilin (Bolus 2mg/ml) 6.2 ml I.V. was administered by Debbie Iglesias RN; for antiplatelet therapy; Wasted 3.8 ml of vial 19:31:11 Use device set Radial Dx or PCI 19:31:14 Use device set TAUTH PCI 19:31:22 Tegaderm 4 x 4 (1626W) opened to sterile field. 19:31:26 MBrace Wrist Support ([id number]) opened to sterile field. 19:31:34 SHEATH 6FR Slender (801060) opened to sterile field. 19:32:02 Inflate balloon Inflation number: 1 A EUPHORA 3.5 x 20 Balloon ([id number]) was prepped and advanced across the Mid LAD, then inflated to 11 NGUYEN for 0:10 (min:sec). 19:32:19 Integrilin (Bolus 2mg/ml) 6.2 ml I.C. was administered by Elliot Varma MD; for antiplatelet therapy; Wasted 3.2 ml of vial 19:32:29 GUIDE 6FR XBLAD 3.5 catheter ([id number]) opened to sterile field. 19:34:11 Balloon removed over the wire. 19:35:12 Place stent Inflation Number: 2 A INTEGRITY RX 3.5 x 22 stent ([id number]) was prepped and advanced across the Mid LAD. The stent was deployed at 17 NGUYEN for 0:10 (min:sec). 19:35:55 Stent catheter was removed intact over wire. 19:35:56 Wire removed. 19:35:57 Guide catheter removed. 19:36:54 TR BAND Standard ([id number]) opened to sterile field. 19:37:10 Sheath removed intact; hemostasis achieved with Mechanical Compression to the Right Radial artery. 19:37:12 Procedure ended.(Physican Out) 19:37:27 Fluoroscopy time 01.90 minutes. 19:37:30 Fluoroscopy dose: 244 mGy 19:37:30 Flurop Dose total: 244 19:37:36 Contrast amount:Isovue 300 38ml. 19:37:38 Sharps counted by scrub and verified by R.N. 19:37:42 TR band inflated with 10cc of air. 19:37:44 Insertion/operative site no bleeding no hematoma. 19:37:45 Post Procedure Pulses reassessed and unchanged 19:37:49 Post-procedure physical assessment completed. ASA score P 2 - A patient with mild systemic disease as per Elliot Varma MD. 19:37:53 Post procedure rhythm: unchanged. 19:37:55 Estimated blood loss: 10 ml 19:37:57 Post procedure instruction explained to patient.Patient verbalizes understanding. 19:37:57 Patient needs reinforcement of post procedure teaching. 19:38:19 Procedure type changed to Cath procedure, Diagnostic procedure, LHC, Coronaries only, PCI procedure, Coronary Stent, Coronary Stent Initial 19:38:20 Procedure and supply charges have been captured, reviewed, submitted and are correct. 19:38:23 Procedure Complication : No complications 19:40:38 Effient 60 mg P.O. was administered by Debbie Iglesias RN; for antiplatelet therapy; 19:42:16 Vital chart was stopped 19:42:17 See physician's report for complete and final results. 19:42:30 Report given to CVICU. 19:42:33 Patient transfered to CVICU with Bed. 19:42:36 Procedure ended. 19:42:36 Full Disclosure recording stopped 19:42:39 End room use (Document Last) Intervention Summary Intervention Notes Time ActionType Lesion and Equipment Action# Pressure Duration Attributes Used 19:32:02 Inflate Mid LAD EUPHORA 3.5 1 11 00:10 balloon x 20 Balloon ([id number]) 19:35:12 Place stent Mid LAD INTEGRITY RX 2 17 00:10 3.5 x 22 stent ([id number]) Device Usage Item Name Manufacture Quantity Catalog Number Hospital Part Current Mini mal Lot# / Charge Number Stock Stock Serial# Code ACIST Acist 1 90615 918660 204689 553084 20 Syringe Medical (61309) Systems Inc ACIST Hand Acist 1 12137 429140 594883 486833 5 Control Medical (65276) Systems Inc ACIST Acist 1 90163 821534 430601 785924 5 Manifold Medical (33670) Systems Inc Medline Cath Medline 1 [id number] 644247 59591 380816 5 Pack ([id number]) Bag Decanter Microtek 1 2001S 157637 21002 784335 5 (2001S) Medical Inc. DIAGNOSTIC St [place] 1 896846 982825 955018 664261 30 WIRE .035 260cm J wire (773311) CHOICE PT [place] 1 [id number] 945326 525328 972978 5 Extra Scientific Support 182cm wire ([id number]) INFLATOR Merit 1 SH2446 943894 810887 407404 15 [facility] Medical BasixCompak (AZ1852) Tegaderm 4 x 3M 1 1626W 416928 697198 588409 5 4 (1626W) MBrace Wrist Advanced 1 140-0250-00 790227 74185 479889 5 Support Vascular ([id number]) Dynamics SHEATH 6FR Terumo 1 [id number] 035890 173882 017231 5 Slender (80-1060) GUIDE 6FR Cardinal 1 [id number] 630766 935735 728822 10 XBLAD 3.5 Health catheter (63604984) EUPHORA 3.5 Medtronic 1 [id number] 417180 742303 113810 5 [id number] x 20 Balloon ([id number]) INTEGRITY RX Medtronic 1 [id number] 588448 513381 913393 5 [id number] 3.5 x 22 stent ([id number]) TR BAND Terumo 1 [id number] 640960 645545 046837 40 Standard ([id number]) Signature Audit [place] Stage Time Signature Unsigned Intra-Procedure 10/04/2018 Juanjose Peacock 7:44:48 PM RT(R) Signatures Monitor : Juanjose ePacock RT Signature : Date : Time : [address] [address]
[~2018-10-04 14:46] MED LIST: BACLOFEN20 M1 PO; CATAPRES0.1 MG PO; FERROUS SULFAT325 MG PO; HYDROCODON-ACE1 EAC7 PO; LISINOPRIL-HCT1 EAC7 PO; LISINOPRIL20 MG PO; PLAVIX75 MG PO; PROTONIX40 MG PO; SYNTHROID50 MCG PO; TRAZODONE HCL150 MG PO
[2018-10-04 15:44] LABS: HEMOGLOBIN 11.8 g/dL (12-16); MCH 21.6 pg (26.0-34.0); MCHC 30.3 g/dL (31.0-37.0); MCV 71.3 fL (80.0-100.0); RBC 5.47 10x6/uL (4.00-5.40); WBC 13.4 10x3/uL (4.8-10.8)
[2018-10-04 15:47] LABS: APTT 71.8 SECONDS (22.8-39.4); INR 1.16 (0.85-1.17); PROTIME 14.3 SECONDS (11.6-15.0)
[2018-10-04 15:59] LABS: PLATELET COUNT 414 10x3/uL (130-400)
--- NOTE | 2018-10-04 16:06 | MORECARE ---
CASE MANAGEMENT DISCHARGE SUMMARY PATIENT: CK HENDRICKS UNIT: [id number] ADM DATE: 10/04/18 AGE: 73 : 45 SEX: F ROOM/BED: D.[facility] AUTHOR: FRANCKDOC PHYSICIAN: REFERRING PHYSICIAN: JARED STOVER MD DATE OF SERVICE: 10/04/18 Discharge Plan Patient Name: CK HENDRICKS Facility: [facility]:[place] : 1945 Planned Disposition: Home Anticipated Discharge Date: 10/09/18 Discharge Date: Expected LOS: 5 Initial Reviewer: [email or web address] Initial Review Date: 10/04/2018 Generated: 10/04/18 5:06 pm DCP- Discharge Planning Updated by [email or web address]: Sonam Roman on 10/04/18 3:[address] Patient Name: CK HENDRICKS Admission Status: ER Accout number: [id number] Admission Date: 10-04-2018 : 1945 Admission Diagnosis: Attending: JARED STOVER Current LOS: 1 Anticipated DC Date: 10-09-2018 Planned Disposition: Home Primary Insurance: MEDICARE A & B Discharge Planning Comments: CM met with patient to complete initial dc planning assessment. CM educated patient on the CM role and verbal consent given by patient to complete assessment. Patient lives at home alone and reports she is independent in her care at home. At discharge patient plans to return home alone and feels this is a safe discharge. She reports her daughter lives close to her. She has a cg named Rhona that comes 3 x week to assist with housework and anything else she needs help with. CM discussed availability of home health, rehab services, and medical equipment. Patient denied known discharge needs at this time. CM will continue to follow and will assist as needed with dc plans/needs. Director Of Financial Aid: Sonam Roman RN, [facility] DCPIA - Discharge Planning Initial Assessment Updated by [email or web address]: Sonam Roman on 10/04/18 4:02 pm * Is the patient Alert and Oriented? Yes * How many steps to enter\exit or inside your home? 4 or 5 * PCP Dr. Bass * Pharmacy [facility] * Preadmission Environment Home Alone * ADLs Independent * Equipment Rolling Walker Wheelchair * List name and contact numbers for known caregivers / representatives who currently or will assist patient after discharge: Sonia Jacobs - rush - [phone] * Verbal permission to speak to the caregivers and representatives has been obtained from the patient. Yes * Community resources currently utilized Meals on Wheels * Please name any agencies selected above. CG 3 x week to assist with housework and whatever else she needs. * Additional services required to return to the preadmission environment? No * Can the patient safely return to the preadmission environment? Yes * Has this patient been hospitalized within the prior 30 days at any hospital? Yes Patient Name: CK HENDRICKS Page 10886 at 1606 All edits/amendments must be made on the electronic document DICTATION DATE: 10/04/181604 MONOTYPE SETTER: JENELLE 10/04/181604 RPT#: [id number] DC DATE: STATUS: ADM IN [facility] [address] [place] [address] END OF REPORT
[2018-10-04 16:24] LABS: ALBUMIN 3.4 g/dL (3.4-5.0); ALKALINE PHOSPHATASE 56 U/L (46-116); ALT (SGPT) 16 U/L (10-68); BILIRUBIN - TOTAL 0.62 mg/dL (0.2-1.3); CALC OSMOLALITY 273 mosm/kg (275-300); CALCIUM 9.3 mg/dL (8.5-10.1); CARBON DIOXIDE 25.2 mmol/L (21.0-32.0); CHLORIDE - SERUM 100 mmol/L (98-107); CREATININE - SERUM 0.9 mg/dL (0.6-1.3); GLUCOSE 130 mg/dL (74-106); POTASSIUM - SERUM 3.4 mmol/L (3.5-5.1); SODIUM 137 mmol/L (136-145); UREA NITROGEN 8 mg/dL (7-18); eGFR NON AFRICAN AMERICAN 65 mL/min (90-120)
[2018-10-04 17:00] LABS: CKMB 0.7 U/L (0.0-3.6); CREATINE KINASE 38 UL (21-215)
[2018-10-04 17:03] LABS: THYROID STIMULATING HORMONE 85.69 uIU/mL (0.36-3.74); TROPONIN-I 0.915 ng/mL (0.000-0.060)
[2018-10-04 17:04] LABS: HEMATOCRIT 41.2 % (36.0-48.0); HEMOGLOBIN 12.5 g/dL (12-16)
[2018-10-04 17:10] LABS: EOSINOPHILS 2 % (0-7); LYMPHOCYTES 12 % (15-50); MONOCYTES 2 % (2-11); NEUTROPHILS 84 % (40-80); PLATELET ESTIMATE INCREASED
--- NOTE | 2018-10-04 17:51 | NUR ---
1615: REC'D TO ROOM CV7. TRANSFERRED TO ICU BED PER SELF. CONNECTED TO MONITOR AND VS OBTAINED. SEE FLOWSHEET FOR ASSESSMENT. 1645: DR. STOVER NOTIFIED OF H/H RESULTS AND C/O CHEST PAIN. NEW ORDERS REC'D. 1755: REPEAT H/H RESULTS PHONED TO DR. STOVER. INSTRUCTED BY HIM TO NOTIFY DR. LAGUERRE OF NEW RESULTS. 1758: DR. LAGUERRE PAGED.
--- NOTE | 2018-10-04 18:17 | NUR ---
DR. LAGUERRE RETURNED CALL. NEW ORDERS REC'D. 346: VETERINARY SCIENCE TEACHER NOTIFIED TO CALL IN POWER GENERATING PLANT OPERATOR.
--- NOTE | 2018-10-04 19:15 | NUR ---
1900 ASSESSMENT DONE SEE FLOW SHEET. VSS. PREOP MEDS GIVEN. PT WILL BE TAKEN TO KILN OPERATOR. WILL CONTINUE TO MONITOR. 191 KILN OPERATOR STAFF AT BEDSIDE. PT TAKEN TO KILN OPERATOR. VSS. WILL CONTINUE TO MONITOR.
--- NOTE | 2018-10-04 20:00 | NUR ---
PT BROUGHT BACK TO ROOM VIA STRETCHER. R WRIST PROTECTOR IN PLACE. VSS. PT VERBALIZES NO COMPLAINTS. NO SIGNS OF ACUTE DISTRESS NOTED. WILL CONTINUE TO MONITOR.
--- NOTE | 2018-10-04 20:33 | NUR ---
2032- SPOKE WITH FAMILY OF PT IN CV7 ROOM WITH PT INVOLVED TO INQUIRE IF PT HAD BEEN TAKING HER PLAVIX PRESCRIBED. ELDEST DAUGHTER STATES THEY KNEW NOTHING ABOUT HER HAVING A NEW MEDICATION AND THAT HER MOTHER DOES NOT INFORM THEM OF THINGS. INFORMED THAT THE NEW ANTIPLATELET WOULD BE EFFIENT AND TAKEN ONCE DAILY AND SHE (VINCENT) STATES THAT SHE LIVES NEXT DOOR AND WILL BE GOING OVER DAILY TO MAKE SURE SHE TAKES HER MEDICATIONS.
--- NOTE | 2018-10-04 21:04 | NUR ---
MEDS GIVEN PER MAR WILL CONTINUE TO MONITOR.
[2018-10-04 21:54] LABS: ANION GAP 11.7 mmol/L (8-16); CALCIUM 8.5 mg/dL (8.5-10.1); CARBON DIOXIDE 26.1 mmol/L (21.0-32.0); CREATININE - SERUM 0.8 mg/dL (0.6-1.3); POTASSIUM - SERUM 3.8 mmol/L (3.5-5.1); T4 THYROXIN - FREE 0.57 ng/dL (0.76-1.46); THYROID STIMULATING HORMONE 26.06 uIU/mL (0.36-3.74)
[2018-10-04 21:54] LABS: % SATURATION 16 % (15-55); IRON 54 ug/dl (35-150); TOTAL IRON BIND CAPACITY 318 ug/dl (260-445); UNSAT IRON BIND CAPACITY 264 ug/dl (150-375)
[2018-10-04 22:43] LABS: HEMATOCRIT 35.5 % (36.0-48.0); HEMOGLOBIN 10.8 g/dL (12-16)
--- NOTE | 2018-10-04 22:48 | NUR ---
REASSESSMENT DONE SEE FLOW SHEET. R WRIST PROTOCTO DEFLATED TO 6ML AIR. NO BLEEDING NOTED. VSS WILL CONITNUE TO MONITOR.
--- NOTE | 2018-10-04 23:41 | NUR ---
R WRIST PROTECTOR REMOVED. NO BLEEDING NOTED. SANDWICH PROVIDED PER PT REQUEST.
[2018-10-05] VITALS (13 sets, daily range): BP systolic 100–152; BP diastolic 56–95; Ht 160 cm; Wt 71.0 kg
--- NOTE | 2018-10-05 01:00 | NUR ---
PT RESTING IN BED VSS NO SIGNS OF ACUTE DISTRESS NOTED WILL CONTINUE TO MONITOR.
--- NOTE | 2018-10-05 02:57 | NUR ---
REASSESSMENT DONE SEE FLOW SHEET. VSS. NO SIGNS OF ACUTE DISTRESS NOTED.
--- NOTE | 2018-10-05 05:00 | NUR ---
PT LAYING IN BED RESTING. VSS. IO COLLECTED DAILY WEIGHT COLLECTED WILL CONTINUE TO MONITOR.
[2018-10-05 05:31] LABS: HEMATOCRIT 34.8 % (36.0-48.0); HEMOGLOBIN 10.4 g/dL (12-16)
[2018-10-05 07:32] LABS: % SATURATION 27 % (15-55); IRON 80 ug/dl (35-150); TOTAL IRON BIND CAPACITY 294 ug/dl (260-445); UNSAT IRON BIND CAPACITY 214 ug/dl (150-375)
--- NOTE | 2018-10-05 08:40 | NUR ---
ASSISTED UP TO BATHROOM. TOLERATED WITHOUT ANY PAIN OR SOB. ANDRE DC'D. SALINE LOCK IN R FOREARM DC'D PER SELF.
[2018-10-05 10:52] LABS: HEMATOCRIT 35.3 % (36.0-48.0); HEMOGLOBIN 10.6 g/dL (12-16)
--- NOTE | 2018-10-05 13:11 | NUR ---
1245: DISCHARGE ORDERS REVIEWED WITH PATIENT AND DAUGHTER. 1303: DISCHARGED HOME WITH DAUGHTER. ESCORTED TO VEHICLE BY WHEELCHAIR.
--- NOTE | 2018-10-07 12:15 | MORECARE ---
CASE MANAGEMENT DISCHARGE SUMMARY PATIENT: CK HENDRICKS UNIT: [id number] ADM DATE: 10/04/18 AGE: 73 : 45 SEX: F ROOM/BED: D.[facility] AUTHOR: FRANCKDOC PHYSICIAN: REFERRING PHYSICIAN: JARED STOVER MD DATE OF SERVICE: 10/07/18 Discharge Plan Patient Name: CK HENDRICKS Facility: [facility]:[place] : 1945 Planned Disposition: Home Anticipated Discharge Date: 10/09/18 Discharge Date: 10/05/2018 Expected LOS: 5 Initial Reviewer: [email or web address] Initial Review Date: 10/04/2018 Generated: 10/07/18 1:15 pm DCP- Discharge Planning Updated by [email or web address]: Sonam Roman on 10/04/18 3:[address] Patient Name: CK HENRDICKS Admission Status: ER Accout number: [id number] Admission Date: 10-04-2018 : 1945 Admission Diagnosis: Attending: JARED STOVER Current LOS: 1 Anticipated DC Date: 10-09-2018 Planned Disposition: Home Primary Insurance: MEDICARE A & B Discharge Planning Comments: CM met with patient to complete initial dc planning assessment. CM educated patient on the CM role and verbal consent given by patient to complete assessment. Patient lives at home alone and reports she is independent in her care at home. At discharge patient plans to return home alone and feels this is a safe discharge. She reports her daughter lives close to her. She has a cg named Rhona that comes 3 x week to assist with housework and anything else she needs help with. CM discussed availability of home health, rehab services, and medical equipment. Patient denied known discharge needs at this time. CM will continue to follow and will assist as needed with dc plans/needs. Regulator Assembler: Sonam Roman RN, [facility] DCPIA - Discharge Planning Initial Assessment Updated by [email or web address]: Sonam Roman on 10/04/18 4:02 pm * Is the patient Alert and Oriented? Yes * How many steps to enter\exit or inside your home? 4 or 5 * PCP Dr. Bass * Pharmacy [facility] * Preadmission Environment Home Alone * ADLs Independent * Equipment Rolling Walker Wheelchair * List name and contact numbers for known caregivers / representatives who currently or will assist patient after discharge: Sonia beverly - [phone] * Verbal permission to speak to the caregivers and representatives has been obtained from the patient. Yes * Community resources currently utilized Meals on Wheels * Please name any agencies selected above. CG 3 x week to assist with housework and whatever else she needs. * Additional services required to return to the preadmission environment? No * Can the patient safely return to the preadmission environment? Yes * Has this patient been hospitalized within the prior 30 days at any hospital? Yes Last DP export: 10/04/18 3:06 p Patient Name: CK HENDRICKS Page [phone] at 1215 All edits/amendments must be made on the electronic document DICTATION DATE: 10/07/18 1214 TRIM MOUNTER: JENELLE 10/07/18 1214 RPT#: [id number] DC DATE:10/05/18 STATUS: DIS IN [facility] [address] [place] [address] END OF REPORT
--- NOTE | 2018-10-09 14:39 | OP ---
PATIENT NAME: CK KAMINSKI MEDICAL RECORD: [id number] :[birth year] LOCATION:[facility] ADMISSION DATE:10/04/18 SURGEON: JANINA LAGUERRE MD DATE OF OPERATION: 10/04/2018 PROCEDURES: 1. PTCA stent LAD. 2. Selective coronary angiography. INDICATION: Acute coronary syndrome. Ms. Kaminski initially presented with ST segment elevation myocardial infarction was given heparin drip, ST segment elevation resolved. She continued to have chest pain. Initially hemoglobin was felt to be 5.0; however, this was a spurious result. Two repeat hemoglobins were 11 and 12. At that time, we decided to proceed with coronary angiography as anticoagulation would be feasible. FINDINGS: There was clot burden in the previously placed stent in the LAD as well. During the history taking from Mrs. Kaminski it appears that there is questionable if she ever got any Plavix at all, so it is possible she is a Plavix nonresponder, but it is possible that she does never took any Plavix. Either way, we restented this with a 3.5 x 22 mm Integrity stent. Result was 0% residual stenosis. No further thrombus burden. Yarsani of the MARCEL III flow. OVERALL IMPRESSION: Successful percutaneous transluminal coronary angioplasty stent of the left anterior descending going from it was initially proximally 90% stenosis with thrombus to 0% residual stenosis. No further thrombus. Yarsani of MARCEL III flow. We loaded her on Effient with hopes that she will get the generic Effient. TRANSINT:[id number] Voice Confirmation ID: [id number] DOCUMENT ID: [id number] JANINA LAGUERRE MD at 1439 CC: [id number] DICTATION DATE: 10/04/181939 SENIOR CONSTRUCTION ESTIMATOR: 10/05/18 0127 DIS IN 10/05/18 [facility] [address] [place] [address]
--- NOTE | 2018-10-09 14:39 | CN ---
PATIENT NAME:CK KAMINSKI MEDICAL RECORD: [id number] : [birth year] LOCATION:[facility].CV07 ADMIT DATE: 10/04/18 ACCOUNT: [id number] CONSULTING PHYSICIAN: JANINA LAGUERRE MD REFERRING PHYSICIAN: JARED STOVER MD DATE OF CONSULTATION: 10/04/2018 CARDIOLOGY CONSULTATION DIAGNOSES: 1. Acute anterior myocardial infarction. 2. Coronary artery disease. 3. Recent PTCA stent LAD. 4. GI bleed, acute. 5. Anemia. 6. Hypotension. 7. History of hypertension. 8. GERD. HISTORY OF PRESENT ILLNESS: Mrs. Kaminski presented last week with unstable anginal symptomatology, found to have critical disease of the LAD, underwent successful PTCA stent of the LAD, at which time, she was started on Plavix. She went home. She presented to [facility] today with recurrent chest pain. Her hemoglobin was found to be 5. She does have a history of GI bleeding and has had more bright red blood per rectum since the procedure. PHYSICAL EXAMINATION: GENERAL APPEARANCE: Well-nourished, well-developed, appears stated age. Level of distress, comfortable. PSYCHIATRIC: Mental status, alert, normal affect. Orientation, oriented to time, place and person. EYES: Lids and conjunctiva, noninjected. No discharge, no pallor. ENT: Lips, teeth, gums, normal dentition. Oropharynx, no cyanosis, no pallor. NECK: Carotid arteries, bilateral normal upstroke, no bruits, no thrills. JUGULAR VEINS: No jugular venous pressure or distention. CERVICAL LYMPH NODES: Nontender, nonenlarged. THYROID: Not enlarged. Nontender. No nodules. LUNGS: Respiratory effort, unlabored. CHEST: Normal curvature. No thoracic deformity. No chest wall tenderness. Percussion, resonant. Auscultation, clear. No wheezes, no rales, no rhonchi. CARDIOVASCULAR: Precordial exam, nondisplaced. No heaves or pericardial thrills. Rate and rhythm, regular. Heart sounds, normal S1, normal S2. No S3, no gallop, no rub. Systolic murmur, not heard. Diastolic murmur, not heard. EXTREMITIES: No cyanosis, no edema. Peripheral pulses, full and equal in all extremities, except as noted. No bruits appreciated. ABDOMEN: Soft, nondistended. Normal aorta. No bruit. Nontender. No masses. Liver, nontender, no hepatomegaly. Spleen, nontender, no splenomegaly. MUSCULOSKELETAL: No joint tenderness. No joint swelling. No erythema. NEUROLOGICAL: Normal gait, normal strength, normal tone. SKIN: Warm and dry. OVERALL IMPRESSION: Acute GI bleed with hypotension and hemoglobin of 5. At this time, we cannot re-intervene from a cardiac standpoint, so we cannot anticoagulate her further, she has been on her Plavix. We will treat her supportively for the acute ID, but most likely resolving the hypotension and CONSULT REPORT [id number] CK KAMINSKI anemia. We will resolve the myocardial infarction. TRANSINT:[id number] Voice Confirmation ID: [id number] DOCUMENT ID: [id number] JANINA LAGUERRE MD at 1439 CC: [id number] DICTATION DATE: 10/04/18 153 WATER FABRICATOR OPERATOR: 10/04/18 1549 DIS IN 10/05/18 [facility] [address] [place] [address]
== END 2018-10-05 13:03 | disposition home or self-care (01) | DRG 248 ==
LOC: D.ER 14:46 → D.CVICU 15:24
PROVIDERS: Emergency Medicine; Internal Medicine Interventional Cardiology; ADMIT Internal Medicine Nephrology; ATTEND Internal Medicine Nephrology
PROC: 02703DZ Dilation of Coronary Artery, One Artery with Intraluminal Device, Percutaneous Approach (ICD-10-PCS; principal; 2018-10-04 18:48)
DX: I97.190 Other postprocedural cardiac functional disturbances following cardiac surgery (principal); I21.A9 Other myocardial infarction type; K92.2 Gastrointestinal hemorrhage, unspecified; T82.867A Thrombosis due to cardiac prosthetic devices, implants and grafts, initial encounter; D64.9 Anemia, unspecified; I25.10 Atherosclerotic heart disease of native coronary artery without angina pectoris; I95.9 Hypotension, unspecified; K21.9 Gastro-esophageal reflux disease without esophagitis; I10 Essential (primary) hypertension; E87.6 Hypokalemia; Z91.14 Patient's other noncompliance with medication regimen; E03.9 Hypothyroidism, unspecified; K64.2 Third degree hemorrhoids